=== PATIENT | female | born 1980 | race Caucasian/White ===

== ENCOUNTER 2016-09-06 17:52 | Emergency (ER) | payer OTHER ==
[~2016-09-06] VITALS: Ht 162.6 cm; Wt 110.1 kg
[~2016-09-06 17:52] MED LIST: AMB10 PO; ATOM40CA PO; BNT20 PO; BSP5 PO; LOVA20TA4 PO; PRAZ1CAP10 PO; PROP20TA67 PO; RMR15 PO; TOPI200T14 PO; TRAM-10 PO; TRAZ100T29 PO
[2016-09-06] MEDS ORDERED: SODIUM CHLORIDE 0.9% 1000ML 1,000 ML IV STA (18:07)
[2016-09-06] MEDS ORDERED: NICOTINE POLACRILEX 2 MG GUM MT STA (18:11)
[2016-09-06] MEDS ORDERED: NICOTINE 21 MG/24 HR TDSY TD STA (18:11)
[2016-09-06] MEDS ORDERED: TRVHP PO (18:22)
[2016-09-06] MEDS ORDERED: DOXE50CA3 PO (18:22)
[2016-09-06] MEDS ORDERED: HALO10TA17 PO (18:22)
[2016-09-06] MEDS ORDERED: AMPH20TA2 PO (18:22)
[2016-09-06] MEDS ORDERED: INDSR/60 PO (18:22)
[2016-09-06] MEDS ORDERED: VALA500T60 PO (18:22)
[2016-09-06] MEDS ORDERED: CLON1TAB3 PO (18:22)
[2016-09-06 18:27] LABS: URINE APPEARANCE CLEAR (CLEAR); URINE BILIRUBIN NEG (NEG); URINE COLOR YELLOW; URINE NITRITE NEG (NEG); URINE PH 6.5 (4.5-7.5); URINE SPECIFIC GRAVITY 1.009 (1.000-1.030); UROBILINOGEN NEG (NEG)
[2016-09-06 18:38] LABS: MANUAL MICROSCOPIC REQUIRED? YES; REVIEW REQ? NO
[2016-09-06 18:44] VITALS: TEMP 37.1; O2SAT 96; Ht 162.6 cm; Wt 110.1 kg
[2016-09-06 18:47] LABS: BASO % 0.5 %; BASO ABS # 0.05 K/uL (0-0.2); COMPLETE YES; HEMATOCRIT 41.8 % (37-47); IG% 0.3 %; LYMPH % 42.4 %; LYMPH ABS # 4.12 K/uL (1.2-3.4); MEAN CELL VOLUME 94.6 fL (80-100); MEAN CORPUSCULAR HEMOGLOBIN 31.7 pg (25-34); MEAN CORPUSCULAR HGB CONC 33.5 g/dl (32-36); MEAN PLATELET VOLUME 10.5 fL (7.4-10.4); MONO % 6.7 %; NEUT % 49.1 %; PLATELET COUNT 271 K/uL (130-400); RED BLOOD COUNT 4.42 M/uL (4.2-5.4); WHITE BLOOD COUNT 9.71 K/uL (4.8-10.8)
[2016-09-06 18:51] LABS: BENZODIAZEPINE, URINE NEG (NEG); COCAINE,URINE NEG (NEG); PHENCYCLIDINE, URINE NEG (NEG)
[2016-09-06 18:55] LABS: PARTIAL THROMBOPLASTIN RATIO 1.2; PROTHROMBIN TIME (PATIENT) 10.8 SECONDS (9.0-12.0)
[2016-09-06 19:01] LABS: URINE BACTERIA NEG (NEG); URINE RBC 0-4 /hpf (0-4)
[2016-09-06 19:04] LABS: BUN/CREATININE RATIO 10.6 (10-20); CALCIUM 9.4 mg/dl (8.5-10.1); CREATININE 0.99 mg/dl (0.60-1.20); POTASSIUM 3.1 mmol/L (3.5-5.1)
[2016-09-06 19:12] LABS: ACETAMINOPHEN < 2 ug/ml (10-30)
[2016-09-06 21:23] VITALS: BP 147/105; PULSE 75; O2SAT 98
--- NOTE | 2016-09-06 22:17 | EMERGENCY ROOM VISIT NOTE ---
History Report prepared by Wale: Jacquie Chahal Under the Supervision of: Dr. Abdoul Sherwood M.D. 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 The patient was brought to the ED by EMS. [facility] was on scene. She drank a chava jar of moonshine, ate marijuana, had 24 of triple C, cocaine , and an extra dose of Haldol. The history is limited due to the patient's intoxication. 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 Past Medical & Surgical Medical Problems: (1) Alcohol intoxication (2) Depression (3) IBS (irritable bowel syndrome) (4) Migraine (5) Seizure Family History No pertinent family history stated. Social History Marital Status: single Occupation Status: disabled Current/Historical Medications Scheduled Amphetamine-Dextroamphetamine 20MG (Adderall 20MG), 25 MG PO TID Buspirone Hcl (Buspar *), 10 MG PO DAILY Dicyclomine Hcl (Bentyl *), 20 MG PO TID Doxepin (Sinequan), 50 MG PO HS Emtricitabine/Temofovir (Truvada 200/300MG), 1 TAB PO DAILY Haloperidol (Haldol), 10 MG PO TID Prazosin Hcl (Prazosin), 1 MG PO BID Propranolol Hcl (Propranolol ER), 60 MG PO DAILY Tramadol (Ultram), 50-100 MG PO Q4HR Valacyclovir (Valtrex), 500 MG PO DAILY Zolpidem Tartrate (Ambien *), 10 MG PO HS Scheduled PRN Clonazepam (Klonopin), 1 MG PO TID PRN for prn Allergies Coded Allergies: Ethanol (Verified Allergy, Mild, 2/5/10) Thioridazine (Verified Allergy, Mild, 2/5/10) Atropine (Verified Adverse Reaction, Severe, SEIZURES, 2/5/10) Physical Exam Vital Signs Date Time Temp Pulse Resp B/P (MAP) Pulse Ox O2 Delivery O2 Flow Rate FiO2 09/06/16 21:23 75 20 147/105 98 Room Air 09/06/16 19:14 83 09/06/16 18:44 96 Room Air 09/06/16 18:44 96 Room Air 09/06/16 18:44 37.1 78 20 123/75 97 Room Air Physical Exam GENERAL: Patient is a healthy-appearing well-nourished red appears very happy HEAD: Normocephalic atraumatic EYES: Ocular movements intact pupils equal and react to light OROPHARYNX mucous membranes are moist no exudates present no erythema or edema present NECK: Supple no nuchal rigidity CHEST: Good equal expansion LUNGS: Clear and equal to auscultation CARDIAC: Normal S1 and S2 ABDOMEN: Soft nontender no guarding BACK: No CVA tenderness EXTREMITIES: No pain upon palpation normal muscle strength in all groups no clubbing cyanosis or edema NEURO: Patient is following commands and answering questions appropriately. Alert and oriented x3 Cranial Nerves 2-12 grossly intact Medical Decision & Procedures Laboratory Results 09/06/16 18:36 Red Blood Count 4.42, Mean Corpuscular Volume 94.6, Mean Corpuscular Hemoglobin 31.7, Mean Corpuscular Hemoglobin Concent 33.5, Mean Platelet Volume 10.5, Neutrophils (%) (Auto) 49.1, Lymphocytes (%) (Auto) 42.4, Monocytes (%) (Auto) 6.7, Eosinophils (%) (Auto) 1.0, Basophils (%) (Auto) 0.5, Neutrophils # (Auto) 4.76, Lymphocytes # (Auto) 4.12, Monocytes # (Auto) 0.65, Eosinophils # (Auto) 0.10, Basophils # (Auto) 0.05 09/06/16 18:36 Test 09/06/16 18:00 09/06/16 18:36 09/06/16 18:49 Urine Color YELLOW Urine Appearance CLEAR (CLEAR) Urine pH 6.5 (4.5-7.5) Urine Specific Noti 1.009 (1.000-1.030) Urine Protein NEG (NEG) Urine Glucose (UA) NEG (NEG) Urine Ketones NEG (NEG) Urine Occult Blood TRACE (NEG) Urine Nitrite NEG (NEG) Urine Bilirubin NEG (NEG) Urine Urobilinogen NEG (NEG) Urine Leukocyte Esterase SMALL (NEG) Urine WBC (Auto) /hpf (0-5) Urine RBC (Auto) /hpf (0-4) Urine Hyaline Casts (Auto) /lpf (0-5) Urine Epithelial Cells (Auto) /lpf (0-5) Urine Bacteria (Auto) (NEG) Urine RBC 0-4 /hpf (0-4) Urine WBC 1-5 /hpf (0-5) Urine Epithelial Cells 20-30 /lpf (0-5) Urine Bacteria NEG (NEG) Urine Opiates Screen NEG (NEG) Urine Methadone, Qualitative NEG (NEG) Urine Barbiturates NEG (NEG) Urine Phencyclidine (PCP) Level NEG (NEG) Ur Amphetamine/Methamphetamine NEG (NEG) MDMA (Ecstasy) Screen NEG (NEG) Urine Benzodiazepines Screen NEG (NEG) Urine Cocaine Metabolite NEG (NEG) Urine Marijuana (THC) NEG (NEG) White Blood Count 9.71 K/uL (4.8-10.8) Red Blood Count 4.42 M/uL (4.2-5.4) Hemoglobin 14.0 g/dL (12.0-16.0) Hematocrit 41.8 % (37-47) Mean Corpuscular Volume 94.6 fL (80-100) Mean Corpuscular Hemoglobin 31.7 pg (25-34) Mean Corpuscular Hemoglobin Concent 33.5 g/dl (32-36) Platelet Count 271 K/uL (130-400) Mean Platelet Volume 10.5 fL (7.4-10.4) Neutrophils (%) (Auto) 49.1 % Lymphocytes (%) (Auto) 42.4 % Monocytes (%) (Auto) 6.7 % Eosinophils (%) (Auto) 1.0 % Basophils (%) (Auto) 0.5 % Neutrophils # (Auto) 4.76 K/uL (1.4-6.5) Lymphocytes # (Auto) 4.12 K/uL (1.2-3.4) Monocytes # (Auto) 0.65 K/uL (0.11-0.59) Eosinophils # (Auto) 0.10 K/uL (0-0.5) Basophils # (Auto) 0.05 K/uL (0-0.2) RDW Standard Deviation 46.2 fL (36.4-46.3) RDW Coefficient of Variation 13.4 % (11.5-14.5) Immature Granulocyte % (Auto) 0.3 % Immature Granulocyte # (Auto) 0.03 K/uL (0.00-0.02) Prothrombin Time 10.8 SECONDS (9.0-12.0) Prothromb Time International Ratio 1.0 (0.9-1.1) Activated Partial Thromboplast Time 31.7 SECONDS (21.0-31.0) Partial Thromboplastin Ratio 1.2 Anion Gap 9.0 mmol/L (3-11) Est Creatinine Clear Calc Drug Dose 95.3 ml/min Estimated GFR () 85.0 Estimated GFR (Non- 73.3 BUN/Creatinine Ratio 10.6 (10-20) Calcium Level 9.4 mg/dl (8.5-10.1) Total Bilirubin 0.3 mg/dl (0.2-1) Direct Bilirubin 0.1 mg/dl (0-0.2) Aspartate Amino Transf (AST/SGOT) 16 U/L (15-37) Alanine Aminotransferase (ALT/SGPT) 25 U/L (12-78) Alkaline Phosphatase 102 U/L (45-117) Total Creatine Kinase 93 U/L (26-192) Total Protein 7.4 gm/dl (6.4-8.2) Albumin 3.9 gm/dl (3.4-5.0) Lipase 475 U/L (73-393) Salicylates Level 3.7 mg/dl (2.8-20) Acetaminophen Level < 2 ug/ml (10-30) Ethyl Alcohol mg/dL 67.0 mg/dl (0-3) Bedside Glucose 120 mg/dl (70-90) Labs reviewed by ED physician. Medications Administered Medications (Trade) Dose Ordered Sig/Rajesh Route Start Time Stop Time Status Last Admin Dose Admin Sodium Chloride 1,000 ml @ 999 mls/hr Q1H1M STAT IV 09/06/16 18:07 09/06/16 19:07 DC 09/06/16 18:52 999 MLS/HR Nicotine (Nicoderm Cq 21MG Patch) 1 patch NOW STAT TD 09/06/16 18:11 09/06/16 18:13 DC 09/06/16 19:30 1 PATCH ECG Indication: toxicologic Rate (beats per minute): 75 Rhythm: normal sinus Findings: no acute ischemic change, no ectopy, other (QT/QTc is 422/471) ED Course 1803: Past medical records reviewed. The patient was evaluated in room B7. A complete history and physical examination was performed. 1806: NSS 1000 ml @ 999 mls/hr IV. 1810: Nicotine Polacrilex 1 piece MT, Nicotine 1 patch TD. 1920: I reevaluated the patient. She appears to be back at baseline. 2045: The psychiatric patient case coordinator has seen the patient. She believes the patient can be discharged home. 2055: Upon reexamination the patient is resting comfortably. I discussed results and treatment plan with the patient. She verbalizes agreement and understanding. The patient is ready for discharge. Medical Decision Prior records/ancillary studies reviewed. Triage Nursing notes reviewed. Additional history obtained from nurses. The patient's history was concerning for altered mental status and a possible overdose. Differential diagnosis: Etiologies such as alcohol intoxication, toxicologic, infection, hypoglycemia, electrolyte abnormalities, cardiac sources, intracerebral event, neurologic, as well as others were entertained. Medication Reconciliation: I attest that I have personally reviewed the patient' s current medication list Blood Pressure Screening: Patient was found to have normal blood pressure on screening and does not require follow up. This is a 36-year-old female who presents emergency department with alcohol intoxication. Upon arrival to the emergency department the patient denies being suicidal or homicidal and appears alert and oriented. An IV was established and laboratory work was drawn. The patient's alcohol level was obtained and found to be below the legal limit. In addition the patient has normal CBC normal renal profile. I do believe that she is medically clear. She was discussed with the case management service who felt that the patient can be safely discharged. Patient was in agreement with treatment plan. Impression Primary Impression: Alcohol intoxication Scribe Attestation The scribe's documentation has been prepared under my direction and personally reviewed by me in its entirety. I confirm that the note above accurately reflects all work, treatment, procedures, and medical decision making performed by me. Departure Information Dispostion Home / Self-Care Referrals No Doctor, Assigned (PCP) Forms HOME CARE DOCUMENTATION FORM, IMPORTANT VISIT INFORMATION, WORK / SCHOOL INSTRUCTIONS Patient Instructions My [facility] Additional Instructions You have been examined and treated today on an emergency basis only. This is not a substitute for, or an effort to provide, complete comprehensive medical care. It is impossible to recognize and treat all injuries or illnesses in a single emergency department visit. It is therefore important that you follow up closely with your PCP. Call as soon as possible for an appointment. Thank you for your time and consideration. I look forward to speaking with you again soon. Please don't hesitate to call us if you have any questions. Problem Qualifiers Primary Impression: Alcohol intoxication Complication of substance-induced condition: uncomplicated Qualified Codes: F10.920 - Alcohol use, unspecified with intoxication, uncomplicated
[2016-09-07] MEDS ORDERED: DICY20TA10 PO (03:34)
[2016-09-07] MEDS ORDERED: SNQ/25 PO (10:40)
[2016-09-07] MEDS ORDERED: CGN5X PO (10:40)
[2016-09-07] MEDS ORDERED: HALO5TAB PO (10:41)
[2016-09-07] MEDS ORDERED: FLUO10CA48 PO (10:41)
[2016-09-07] MEDS ORDERED: LAMO200T38 PO (10:42)
[2016-09-07] MEDS ORDERED: PRIM50TA29 PO (10:43)
[2016-09-07] MEDS ORDERED: PROP20TA4 PO (10:45)
[2016-09-07] MEDS ORDERED: RANI150T3 PO (10:46)
[2016-09-10] MEDS ORDERED: PRAZ1CAP10 PO (23:08)
[2016-09-14] MEDS ORDERED: HLD5 PO (11:15)
[2016-09-14] MEDS ORDERED: HALO10TA17 PO (11:15)
[2016-09-18] MEDS ORDERED: MELATAB2 PO (11:12)
[2016-09-18] MEDS ORDERED: PRIM50TA29 PO (11:12)
[2016-09-18] MEDS ORDERED: PROP60CA5 PO (11:12)
[2016-09-18] MEDS ORDERED: LAMO200T38 PO (11:12)
== END 2016-09-06 21:23 | disposition home or self-care (01) ==
LOC: EDBD 17:52 → C.EDB 17:53 → C.EDA 21:23
DX: F10.129 Alcohol abuse with intoxication, unspecified (principal); Y90.3 Blood alcohol level of 60-79 mg/100 ml; G40.909 Epilepsy, unspecified, not intractable, without status epilepticus; F32.9 Major depressive disorder, single episode, unspecified; K58.9 Irritable bowel syndrome, unspecified; Z79.899 Other long term (current) drug therapy; Z88.8 Allergy status to other drugs, medicaments and biological substances

== ENCOUNTER 2016-09-07 03:06 | Inpatient (IN) | payer OTHER ==
[2016-09-07] VITALS (7 sets, daily range): BP systolic 104–138; BP diastolic 69–93; PULSE 57–67; TEMP 36.5–36.9; O2SAT 96; Ht 162.6 cm; Wt 111.8 kg
[~2016-09-07] VITALS: Ht 162.6 cm; Wt 111.8 kg
[~2016-09-07 03:06] MED LIST changes: +AMPH20TA2 PO; -ATOM40CA PO; +CLON1TAB3 PO; +DOXE50CA3 PO; +HALO10TA17 PO; +INDSR/60 PO; -LOVA20TA4 PO; -PROP20TA67 PO; -RMR15 PO; -TOPI200T14 PO; -TRAZ100T29 PO; +TRVHP PO; +VALA500T60 PO
--- NOTE | 2016-09-07 03:19 | EMERGENCY ROOM VISIT NOTE ---
History Report prepared by Wale: Edwin Milian Under the Supervision of: Dr. Douglas Coleman M.D. First contact with patient: 03:09 Chief Complaint: OVERDOSE (INTENTIONAL) Stated Complaint: OVERDOSE History of Present Illness The patient is a 36 year old female who presents to the Emergency Room with an intentional overdose that occurred today. She was seen in the ER yesterday for alcohol intoxication. She took 2 extra Haldol pills and 1 extra Propranolol pills today. She states that she was not trying to kill herself yet, but wants to. She came to [place] yesterday from [place]. She was seen in a psychologic facility a couple weeks ago. The patient is regularly changing her story. It is clearly different from her earlier visit and the police account. Source of History: patient Onset: today Position: other (global) Symptom Intensity: mild Quality: other (Overdose - intentional) Timing: constant Review of Systems See HPI for pertinent positives & negatives. A total of 10 systems reviewed and were otherwise negative. Past Medical & Surgical Medical Problems: (1) Alcohol intoxication (2) Depression (3) IBS (irritable bowel syndrome) (4) Migraine (5) Seizure Family History Unable to obtain. Social History Smoking Status: Current Every Day Smoker Marital Status: single Occupation Status: disabled Current/Historical Medications Scheduled Amphetamine-Dextroamphetamine 20MG (Adderall 20MG), 25 MG PO TID Doxepin (Sinequan), 50 MG PO HS Emtricitabine/Temofovir (Truvada 200/300MG), 1 TAB PO DAILY Haloperidol (Haldol), 10 MG PO TID Prazosin Hcl (Prazosin), 1 MG PO HS Propranolol Hcl (Propranolol ER), 60 MG PO DAILY Valacyclovir (Valtrex), 500 MG PO DAILY Scheduled PRN Clonazepam (Klonopin), 1 MG PO TID PRN for UNDECIDED Dicyclomine Hcl (Dicyclomine Hcl), 20 MG PO TID PRN for CRAMPING Allergies Coded Allergies: Ethanol (Verified Allergy, Mild, 2/5/10) Thioridazine (Verified Allergy, Mild, 2/5/10) Atropine (Verified Adverse Reaction, Severe, SEIZURES, 2/5/10) Physical Exam Vital Signs Date Time Temp Pulse Resp B/P (MAP) Pulse Ox O2 Delivery O2 Flow Rate FiO2 09/07/16 06:15 72 14 140/82 Room Air 09/07/16 05:26 79 16 136/74 09/07/16 04:26 78 16 127/63 96 Room Air 09/07/16 03:40 76 28 124/79 97 Room Air 09/07/16 03:10 36.9 75 16 123/70 99 Room Air Physical Exam GENERAL: Patient is well appearing and in no acute distress. Somewhat obstinate to questioning. HEENT: No acute trauma, normocephalic atraumatic, mucous membranes moist, no nasal congestion, no scleral icterus. NECK: No stridor, no adenopathy, no meningismus, trachea is midline. LUNGS: No dyspnea. Clear to auscultation and equal bilaterally. No wheeze, no rhonchi. HEART: Regular rate and rhythm. No murmurs, rubs, gallops appreciated. ABDOMEN: Soft, nontender, bowel sounds positive, no masses appreciated, no peritonitis. BACK: No midline tenderness, no CVA tenderness EXTREMITIES: Normal motion all extremities, no cyanosis, no edema. NEUROLOGIC: Alert and oriented, no acute motor or sensory deficits, no focal weakness, cranial nerves grossly intact. SKIN: No rash, no jaundice, no diaphoresis. PSYCH: States that she is suicidal but has not yet tried to kill herself. Admits to depression. Denies hallucinations or homicidal ideations. Medical Decision & Procedures Laboratory Results 09/07/16 03:25 Red Blood Count 4.31, Mean Corpuscular Volume 94.7, Mean Corpuscular Hemoglobin 32.3, Mean Corpuscular Hemoglobin Concent 34.1, Mean Platelet Volume 10.7, Neutrophils (%) (Auto) 47.6, Lymphocytes (%) (Auto) 40.4, Monocytes (%) (Auto) 8.8, Eosinophils (%) (Auto) 2.1, Basophils (%) (Auto) 0.8, Neutrophils # (Auto) 4.85, Lymphocytes # (Auto) 4.11, Monocytes # (Auto) 0.90, Eosinophils # (Auto) 0.21, Basophils # (Auto) 0.08 09/07/16 03:25 Test 09/07/16 03:19 09/07/16 03:25 Ethyl Alcohol mg/dL < 3.0 mg/dl (0-3) White Blood Count 10.18 K/uL (4.8-10.8) Red Blood Count 4.31 M/uL (4.2-5.4) Hemoglobin 13.9 g/dL (12.0-16.0) Hematocrit 40.8 % (37-47) Mean Corpuscular Volume 94.7 fL (80-100) Mean Corpuscular Hemoglobin 32.3 pg (25-34) Mean Corpuscular Hemoglobin Concent 34.1 g/dl (32-36) Platelet Count 289 K/uL (130-400) Mean Platelet Volume 10.7 fL (7.4-10.4) Neutrophils (%) (Auto) 47.6 % Lymphocytes (%) (Auto) 40.4 % Monocytes (%) (Auto) 8.8 % Eosinophils (%) (Auto) 2.1 % Basophils (%) (Auto) 0.8 % Neutrophils # (Auto) 4.85 K/uL (1.4-6.5) Lymphocytes # (Auto) 4.11 K/uL (1.2-3.4) Monocytes # (Auto) 0.90 K/uL (0.11-0.59) Eosinophils # (Auto) 0.21 K/uL (0-0.5) Basophils # (Auto) 0.08 K/uL (0-0.2) RDW Standard Deviation 46.4 fL (36.4-46.3) RDW Coefficient of Variation 13.3 % (11.5-14.5) Immature Granulocyte % (Auto) 0.3 % Immature Granulocyte # (Auto) 0.03 K/uL (0.00-0.02) Anion Gap 4.0 mmol/L (3-11) Est Creatinine Clear Calc Drug Dose 99.2 ml/min Estimated GFR () 88.2 Estimated GFR (Non- 76.1 BUN/Creatinine Ratio 9.7 (10-20) Calcium Level 8.5 mg/dl (8.5-10.1) Total Bilirubin 0.3 mg/dl (0.2-1) Aspartate Amino Transf (AST/SGOT) 16 U/L (15-37) Alanine Aminotransferase (ALT/SGPT) 26 U/L (12-78) Alkaline Phosphatase 104 U/L (45-117) Total Protein 7.1 gm/dl (6.4-8.2) Albumin 3.8 gm/dl (3.4-5.0) Globulin 3.3 gm/dl (2.5-4.0) Albumin/Globulin Ratio 1.2 (0.9-2) Thyroid Stimulating Hormone (TSH) 1.580 uIu/ml (0.300-4.500) Salicylates Level 3.5 mg/dl (2.8-20) Acetaminophen Level < 2 ug/ml (10-30) Laboratory results as reviewed by me. ECG Indication: toxicologic Rate (beats per minute): 75 Rhythm: normal sinus Findings: no acute ischemic change, no ectopy, other (QTC of 477) ED Course 0309: The patient was evaluated in room B9. A complete history and physical exam was performed. 0415: The patient was accepted into [address] [place] [address] for further management and care. They will be coming down to evaluate the patient. Medical Decision Differential: Mood Disorder, Overdose, Infectious, Electrolyte Abnormality, Cardiac, Hepatic, Endocrine, Toxicologic, Neurologic, amongst other pathologies entertained. 36 yr old female with multiple varying stories though repeatedly stating she plans on killing herself by overdosing arrives for second time this evening after just getting [facility] bus from [facility]. She notes recent admission to mental health facility but is pretty vague on actual information. She is in no acute distress and is clearly a bit on tired side though not intoxicated. Story changes on what she overdosed on but states only 1 or 2 pills taken. Medically clear with normal EKG and unremarkable labs. I do not feel she has significant ingestion. She has made clear she has been unable to care for herself, and I fear she likely is suicide risk given her history of ICU stay here when in town 10 yrs ago after overdose. [facility] down to evaluate and bring in to their facility on voluntary basis. Impression Primary Impression: Acute paranoia Additional Impressions: Suicidal ideation Noncompliance with medication regimen Delusional disorder Scribe Attestation The scribe's documentation has been prepared under my direction and personally reviewed by me in its entirety. I confirm that the note above accurately reflects all work, treatment, procedures, and medical decision making performed by me. Departure Information Dispostion Mental Health Acute Care Referrals No Doctor, Assigned (PCP) Patient Instructions My [facility] Problem Qualifiers
[2016-09-07 03:32] LABS: BASO % 0.8 %; BASO ABS # 0.08 K/uL (0-0.2); COMPLETE YES; EOS % 2.1 %; HEMATOCRIT 40.8 % (37-47); IG% 0.3 %; LYMPH % 40.4 %; LYMPH ABS # 4.11 K/uL (1.2-3.4); MEAN CELL VOLUME 94.7 fL (80-100); MEAN CORPUSCULAR HEMOGLOBIN 32.3 pg (25-34); MEAN CORPUSCULAR HGB CONC 34.1 g/dl (32-36); MEAN PLATELET VOLUME 10.7 fL (7.4-10.4); MONO % 8.8 %; NEUT % 47.6 %; PLATELET COUNT 289 K/uL (130-400); RED BLOOD COUNT 4.31 M/uL (4.2-5.4); WHITE BLOOD COUNT 10.18 K/uL (4.8-10.8)
[2016-09-07] MEDS ORDERED: DICY20TA10 PO (03:34)
[2016-09-07 04:05] LABS: ACETAMINOPHEN < 2 ug/ml (10-30); BUN/CREATININE RATIO 9.7 (10-20); CALCIUM 8.5 mg/dl (8.5-10.1); CREATININE 0.96 mg/dl (0.60-1.20); POTASSIUM 3.6 mmol/L (3.5-5.1)
[2016-09-07 04:12] LABS: ALB/GLOB RATIO 1.2 (0.9-2); THYROID STIMULATING HORMONE 1.58 uIu/ml (0.300-4.500)
[2016-09-07] MEDS ORDERED: NURSING VERBAL MED ORDER ONE (06:00)
[2016-09-07] MEDS ORDERED: SODIUM CHLORIDE 0.65% NA SOLN 45 ML (OCEAN) PRN (07:15)
[2016-09-07] MEDS ORDERED: MAGNESIUM HYDROXIDE SUSP 30 ML UDC PO PRN (07:15)
[2016-09-07] MEDS ORDERED: BISMUTH SUBSALICYLATE PER ML OMNICELL CHARGE PO PRN (07:15)
[2016-09-07] MEDS ORDERED: hydrOXYzine HCL 25 MG TAB PO PRN (07:15)
[2016-09-07] MEDS ORDERED: ALUMINUM/MAGNESIUM SUSP 30 ML UDC PO PRN (07:15)
[2016-09-07] MEDS ORDERED: PROPRANOLOL HCL 60 MG LA CAP PO SCH (09:00)
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
[2016-09-07] MEDS ORDERED: CGN5X PO (10:40)
[2016-09-07] MEDS ORDERED: SNQ/25 PO (10:40)
[2016-09-07] MEDS ORDERED: HALO5TAB PO (10:41)
[2016-09-07] MEDS ORDERED: FLUO10CA48 PO (10:41)
[2016-09-07] MEDS ORDERED: LAMO200T38 PO (10:42)
[2016-09-07] MEDS ORDERED: PRIM50TA29 PO (10:43)
[2016-09-07] MEDS ORDERED: PROP20TA4 PO (10:45)
[2016-09-07] MEDS ORDERED: RANI150T3 PO (10:46)
[2016-09-07] MEDS ORDERED: LORAZEPAM 1 MG TAB PO PRN (17:15)
[2016-09-07] MEDS: BENZTROPINE MESYLATE 0.5 MG TAB PO SCH (21:15)
[2016-09-07] MEDS: HALOPERIDOL 5 MG TAB PO SCH (21:16)
[2016-09-07] MEDS: PRIMIDONE 50 MG TAB PO SCH (21:16)
[2016-09-07] MEDS: PRAZOSIN HCL 1 MG CAP PO SCH (21:17)
[2016-09-07] MEDS ORDERED: PRAZOSIN HCL 1 MG CAP PO SCH (22:00)
[2016-09-08 06:52] VITALS: BP_SYST 127; BP_SYST 136; BP_DIAS 73; BP_DIAS 83; PULSE 53; PULSE 56; TEMP 36.6
[2016-09-08] MEDS: EMTRICITABINE/TENOFOVIR TAB PO SCH (09:00)
[2016-09-08] MEDS ORDERED: EMTRICITABINE/TENOFOVIR TAB PO SCH (09:00)
[2016-09-08] MEDS: BENZTROPINE MESYLATE 0.5 MG TAB PO SCH ×2 (09:35→21:14)
[2016-09-08] MEDS: PRIMIDONE 50 MG TAB PO SCH ×2 (09:36→21:14)
[2016-09-08] MEDS: HALOPERIDOL 5 MG TAB PO SCH ×3 (09:36→21:14)
[2016-09-08] MEDS: PRAZOSIN HCL 1 MG CAP PO SCH ×2 (09:38→21:15)
[2016-09-08] MEDS: ACETAMINOPHEN 325 MG TAB PO PRN (10:03)
[2016-09-08 10:35] LABS: BUN/CREATININE RATIO 12.8 (10-20); CALCIUM 8.6 mg/dl (8.5-10.1); CREATININE 0.94 mg/dl (0.60-1.20); POTASSIUM 3.7 mmol/L (3.5-5.1)
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
[2016-09-08] MEDS ORDERED: PROPRANOLOL HCL 60 MG LA CAP PO ONE (10:59)
[2016-09-08 11:35] VITALS: BP 125/85; PULSE 82
[2016-09-08 11:45] VITALS: TEMP 36.5
[2016-09-08] MEDS: hydrOXYzine HCL 25 MG TAB PO PRN (15:24)
[2016-09-08] MEDS ORDERED: NURSING VERBAL MED ORDER ONE (18:45)
[2016-09-08] MEDS ORDERED: NICOTINE POLACRILEX 2 MG GUM MT PRN (19:00)
[2016-09-08] MEDS: COCONUT OIL 1000 MG PO SCH (21:14)
[2016-09-08] MEDS ORDERED: MELATONIN 5 MG TAB PO SCH (22:00)
[2016-09-09 07:01] VITALS: BP_SYST 108; BP_SYST 127; BP_DIAS 71; BP_DIAS 83; PULSE 56; PULSE 64; TEMP 36.8
[2016-09-09] MEDS ORDERED: PROPRANOLOL HCL 60 MG LA CAP PO SCH (09:00)
[2016-09-09] MEDS: HALOPERIDOL 5 MG TAB PO SCH (09:22)
[2016-09-09] MEDS: BENZTROPINE MESYLATE 0.5 MG TAB PO SCH (09:22)
[2016-09-09] MEDS: COCONUT OIL 1000 MG PO SCH (09:24)
[2016-09-09] MEDS: PRIMIDONE 50 MG TAB PO SCH (09:24)
[2016-09-09] MEDS: PRAZOSIN HCL 1 MG CAP PO SCH (09:25)
[2016-09-09] MEDS: EMTRICITABINE/TENOFOVIR TAB PO SCH (09:26)
[2016-09-09] MEDS: ACETAMINOPHEN 325 MG TAB PO PRN (09:50)
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
[2016-09-09] MEDS: hydrOXYzine HCL 25 MG TAB PO PRN (10:56)
[2016-09-09] MEDS ORDERED: TRV PO (11:52)
[2016-09-09] MEDS ORDERED: PRZ1 PO (11:52)
[2016-09-09] MEDS ORDERED: ATR25 PO (11:52)
[2016-09-09] MEDS ORDERED: HLD5 PO (11:52)
[2016-09-09] MEDS ORDERED: VLT500 PO (11:52)
[2016-09-09] MEDS ORDERED: LMC100 PO (11:52)
[2016-09-09] MEDS ORDERED: MYS50 PO (11:52)
[2016-09-09] MEDS ORDERED: Melatonin PO (11:52)
[2016-09-09] MEDS ORDERED: CGN5 PO (11:52)
[2016-09-09] MEDS ORDERED: INDSR60 PO (11:52)
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
[2016-09-10] MEDS ORDERED: HALO5TAB PO (23:08)
[2016-09-10] MEDS ORDERED: CGN1 PO (23:08)
[2016-09-10] MEDS ORDERED: PRIM50TA29 PO (23:08)
[2016-09-10] MEDS ORDERED: PROP20TA67 PO (23:08)
[2016-09-10] MEDS ORDERED: PROP1TAB PO (23:08)
[2016-09-10] MEDS ORDERED: PRAZ1CAP10 PO (23:08)
[2016-09-10] MEDS ORDERED: MELATAB2 PO (23:08)
[2016-09-10] MEDS ORDERED: LAMO100T16 PO (23:08)
[2016-09-14] MEDS ORDERED: HALO10TA17 PO (11:15)
[2016-09-14] MEDS ORDERED: HLD5 PO (11:15)
[2016-09-18] MEDS ORDERED: PRIM50TA29 PO (11:12)
[2016-09-18] MEDS ORDERED: PROP60CA5 PO (11:12)
[2016-09-18] MEDS ORDERED: MELATAB2 PO (11:12)
[2016-09-18] MEDS ORDERED: LAMO200T38 PO (11:12)
== END 2016-09-09 12:35 | disposition home or self-care (01) | DRG 880 ==
LOC: EDBD 03:06 → C.EDB 03:08 → C.MHU 06:00
PROVIDERS: ADMIT Student in an Organized Health Care Education/Training Program; ATTEND Student in an Organized Health Care Education/Training Program
DX: R45.851 Suicidal ideations (principal); F60.3 Borderline personality disorder; Z91.14 Patient's other noncompliance with medication regimen; F25.0 Schizoaffective disorder, bipolar type; F43.10 Post-traumatic stress disorder, unspecified; G40.909 Epilepsy, unspecified, not intractable, without status epilepticus; F32.9 Major depressive disorder, single episode, unspecified; F17.200 Nicotine dependence, unspecified, uncomplicated; T44.6X2A Poisoning by alpha-adrenoreceptor antagonists, intentional self-harm, initial encounter; F10.129 Alcohol abuse with intoxication, unspecified; Y90.3 Blood alcohol level of 60-79 mg/100 ml; K58.9 Irritable bowel syndrome, unspecified; Z79.899 Other long term (current) drug therapy; Z88.8 Allergy status to other drugs, medicaments and biological substances

== ENCOUNTER 2016-09-10 17:33 | Inpatient (IN) | payer OTHER ==
[~2016-09-10] VITALS: Ht 162.6 cm; Wt 111.8 kg
[~2016-09-10 17:33] MED LIST changes: -AMB10 PO; -AMPH20TA2 PO; +ATR25 PO; -BNT20 PO; -BSP5 PO; +CGN5 PO; -CLON1TAB3 PO; -DOXE50CA3 PO; -HALO10TA17 PO; +HLD5 PO; -INDSR/60 PO; +INDSR60 PO; +LMC100 PO; +MYS50 PO; +Melatonin PO; +PROP20TA4 PO; +PRZ1 PO; -TRAM-10 PO; +TRV PO; -TRVHP PO; -VALA500T60 PO; +VLT500 PO
[2016-09-10 18:36] LABS: BASO % 0.5 %; BASO ABS # 0.04 K/uL (0-0.2); COMPLETE YES; EOS % 0.9 %; HEMATOCRIT 38.3 % (37-47); IG% 0.3 %; LYMPH % 43.6 %; LYMPH ABS # 3.81 K/uL (1.2-3.4); MEAN CELL VOLUME 93.6 fL (80-100); MEAN CORPUSCULAR HGB CONC 34.2 g/dl (32-36); MEAN PLATELET VOLUME 10.7 fL (7.4-10.4); MONO % 6.1 %; NEUT % 48.6 %; PLATELET COUNT 231 K/uL (130-400); RED BLOOD COUNT 4.09 M/uL (4.2-5.4); WHITE BLOOD COUNT 8.73 K/uL (4.8-10.8)
--- NOTE | 2016-09-10 18:52 | EMERGENCY ROOM VISIT NOTE ---
History Report prepared by Wale: Bart Eddy Under the Supervision of: Dr. Douglas Coleman M.D. First contact with patient: 18:10 Chief Complaint: MENTAL HEALTH EVALUATION Stated Complaint: MENTAL HEALTH EVAL History of Present Illness The patient is a 36 year old female who presents to the Emergency Room with intermittent suicidal ideations a few days ago. The patient states that she told Cher that she took her Remeron, and they thought she was going to overdose. She reports that she is planning on killing herself by taking an overdose of pills. The patient notes that she is not lying, even after talking to the psychiatrist yesterday. She states that she has a hotel and [facility] to go to. The dependency case manager states the patient talked to the psychiatrist yesterday and said "I will say whatever I need to be admitted because I have no where to go". She reports that the patient has not picked up her medication from [facility] because she is afraid that she will overdose and kill herself. The case manger notes the patient states to have not taken anything. The patient's records show that she was discharged yesterday after a 302 warrant brought her into the ED. Source of History: patient, other (dependency case manager) Onset: few days ago Position: other (brain) Quality: other (scuidal ideations) Timing: intermittent Review of Systems See HPI for pertinent positives & negatives. A total of 10 systems reviewed and were otherwise negative. Past Medical & Surgical Medical Problems: (1) Alcohol intoxication (2) BORDERLINE PERSONALITY DISORDER (3) Depression (4) IBS (irritable bowel syndrome) (5) Migraine (6) Seizure (7) Suicidal ideation Family History Patient reports no known family medical history. Social History Smoking Status: Current Every Day Smoker Marital Status: single Occupation Status: disabled Current/Historical Medications Scheduled Benztropine Mesylate (Cogentin), 0.5 MG PO BID Emtricitabine/Temofovir (Truvada 200/300MG), 1 TAB PO DAILY Haloperidol (Haldol), 1 TAB PO TID Hydroxyzine HCl (Hydroxyzine HCl), 25 MG PO Q4H Lamotrigine (Lamictal), 100 MG PO BID Melatonin (Melatonin Maximum Strengt), 1 TAB PO HS Prazosin Hcl (Prazosin), 1 MG PO BID Prazosin Hcl (Prazosin), 1 MG PO HS Primidone (Mysoline), 50 MG PO BID Propranolol (Inderal), 60 MG PO DAILY Propranolol (Inderal), 20 MG PO TID Valacyclovir (Valtrex), 1 TAB PO DAILY Allergies Coded Allergies: Ethanol (Verified Allergy, Mild, 09/10/16) Thioridazine (Verified Allergy, Mild, 09/10/16) Atropine (Verified Adverse Reaction, Severe, SEIZURES, 09/10/16) Physical Exam Vital Signs Date Time Temp Pulse Resp B/P (MAP) Pulse Ox O2 Delivery O2 Flow Rate FiO2 09/10/16 23:14 46 09/10/16 22:53 51 16 114/59 99 Room Air 09/10/16 21:41 50 16 113/58 93 Room Air 09/10/16 19:42 50 16 95/45 95 Room Air 09/10/16 19:24 55 09/10/16 19:01 94 Room Air 09/10/16 17:45 36.4 60 18 93/52 95 Room Air Physical Exam GENERAL: Patient is somnolent but awakes and answers questions. Obstinate and angry with questioning. HEENT: No acute trauma, normocephalic atraumatic, mucous membranes moist, no nasal congestion, no scleral icterus. NECK: No stridor, no adenopathy, no meningismus, trachea is midline. LUNGS: No dyspnea. Clear to auscultation and equal bilaterally. No wheeze, no rhonchi. HEART: Regular rate and rhythm. No murmurs, rubs, gallops appreciated. ABDOMEN: Soft, nontender, bowel sounds positive, no masses appreciated, no peritonitis. BACK: No midline tenderness, no CVA tenderness EXTREMITIES: Normal motion all extremities, no cyanosis, no edema. NEUROLOGIC: Alert and oriented, no acute motor or sensory deficits, no focal weakness, cranial nerves grossly intact. SKIN: No rash, no jaundice, no diaphoresis. PSYCH: States she will overdose on pills and have to go to the ICU if I do not admit her to the hospital Medical Decision & Procedures Laboratory Results 09/10/16 18:20 Red Blood Count 4.09, Mean Corpuscular Volume 93.6, Mean Corpuscular Hemoglobin 32.0, Mean Corpuscular Hemoglobin Concent 34.2, Mean Platelet Volume 10.7, Neutrophils (%) (Auto) 48.6, Lymphocytes (%) (Auto) 43.6, Monocytes (%) (Auto) 6.1, Eosinophils (%) (Auto) 0.9, Basophils (%) (Auto) 0.5, Neutrophils # (Auto) 4.24, Lymphocytes # (Auto) 3.81, Monocytes # (Auto) 0.53, Eosinophils # (Auto) 0.08, Basophils # (Auto) 0.04 09/10/16 18:20 Test 09/10/16 18:20 09/10/16 19:30 White Blood Count 8.73 K/uL (4.8-10.8) Red Blood Count 4.09 M/uL (4.2-5.4) Hemoglobin 13.1 g/dL (12.0-16.0) Hematocrit 38.3 % (37-47) Mean Corpuscular Volume 93.6 fL (80-100) Mean Corpuscular Hemoglobin 32.0 pg (25-34) Mean Corpuscular Hemoglobin Concent 34.2 g/dl (32-36) Platelet Count 231 K/uL (130-400) Mean Platelet Volume 10.7 fL (7.4-10.4) Neutrophils (%) (Auto) 48.6 % Lymphocytes (%) (Auto) 43.6 % Monocytes (%) (Auto) 6.1 % Eosinophils (%) (Auto) 0.9 % Basophils (%) (Auto) 0.5 % Neutrophils # (Auto) 4.24 K/uL (1.4-6.5) Lymphocytes # (Auto) 3.81 K/uL (1.2-3.4) Monocytes # (Auto) 0.53 K/uL (0.11-0.59) Eosinophils # (Auto) 0.08 K/uL (0-0.5) Basophils # (Auto) 0.04 K/uL (0-0.2) RDW Standard Deviation 44.5 fL (36.4-46.3) RDW Coefficient of Variation 12.9 % (11.5-14.5) Immature Granulocyte % (Auto) 0.3 % Immature Granulocyte # (Auto) 0.03 K/uL (0.00-0.02) Anion Gap 5.0 mmol/L (3-11) Est Creatinine Clear Calc Drug Dose 96.7 ml/min Estimated GFR () 94.1 Estimated GFR (Non- 81.2 BUN/Creatinine Ratio 16.4 (10-20) Calcium Level 8.6 mg/dl (8.5-10.1) Total Bilirubin 0.2 mg/dl (0.2-1) Aspartate Amino Transf (AST/SGOT) 14 U/L (15-37) Alanine Aminotransferase (ALT/SGPT) 23 U/L (12-78) Alkaline Phosphatase 97 U/L (45-117) Total Protein 6.2 gm/dl (6.4-8.2) Albumin 3.6 gm/dl (3.4-5.0) Globulin 2.6 gm/dl (2.5-4.0) Albumin/Globulin Ratio 1.4 (0.9-2) Thyroid Stimulating Hormone (TSH) 1.640 uIu/ml (0.300-4.500) Salicylates Level 3.4 mg/dl (2.8-20) Acetaminophen Level 6 ug/ml (10-30) Ethyl Alcohol mg/dL < 3.0 mg/dl (0-3) Urine Color YELLOW Urine Appearance CLEAR (CLEAR) Urine pH 6.5 (4.5-7.5) Urine Specific [place] 1.008 (1.000-1.030) Urine Protein NEG (NEG) Urine Glucose (UA) NEG (NEG) Urine Ketones NEG (NEG) Urine Occult Blood 2+ (NEG) Urine Nitrite NEG (NEG) Urine Bilirubin NEG (NEG) Urine Urobilinogen NEG (NEG) Urine Leukocyte Esterase MODERATE (NEG) Urine WBC (Auto) 1-5 /hpf (0-5) Urine RBC (Auto) 0-4 /hpf (0-4) Urine Hyaline Casts (Auto) 0 /lpf (0-5) Urine Epithelial Cells (Auto) 20-30 /lpf (0-5) Urine Bacteria (Auto) NEG (NEG) Urine Opiates Screen NEG (NEG) Urine Methadone, Qualitative NEG (NEG) Urine Barbiturates POS (NEG) Urine Phencyclidine (PCP) Level NEG (NEG) Ur Amphetamine/Methamphetamine NEG (NEG) MDMA (Ecstasy) Screen NEG (NEG) Urine Benzodiazepines Screen NEG (NEG) Urine Cocaine Metabolite NEG (NEG) Urine Marijuana (THC) POS (NEG) Laboratory results as reviewed by me. ED Course 181: The patient was evaluated in room A07. A complete history and physical exam was performed. 2018: The patient is attempting to be placed at [facility]. 2331: The patient was accepted to [facility] for further evaluation. Medical Decision Differential: Mood Disorder, Overdose, Infectious, Electrolyte Abnormality, Cardiac, Hepatic, Endocrine, Toxicologic, Neurologic, amongst other pathologies entertained. Medication Reconciliation: I attest that I have personally reviewed the patient 's current medication list. 36 yr old non-compliant patient known to me from a few days ago when admitted for mental health evaluation. Recently moved from [place] and has no where to stay. This is her third mental health evaluation. She already was admitted and admits at that time she just wanted a bed, but now she feels she is truly suicidal and that she will kill herself if she gets discharged. In fact she states she will overdose on her medications and "...end up in ICU like last time." She is non-cooperative and really only willing to talk about being suicidal. She is not interested in other discussions. She clearly is able to be awake and answer questions, though also I believe chooses not too. She did take Remeron before coming in but I do not feel that she needs medical admission for further evaluation. Accepted back to [address] [place] [address] where she was discharged from yesterday. Impression Primary Impression: Suicidal ideation Additional Impression: Non compliance with medical treatment Scribe Attestation The scribe's documentation has been prepared under my direction and personally reviewed by me in its entirety. I confirm that the note above accurately reflects all work, treatment, procedures, and medical decision making performed by me. Departure Information Dispostion Transfer Acute Care Facility Referrals No Doctor, Assigned (PCP) Forms HOME CARE DOCUMENTATION FORM, IMPORTANT VISIT INFORMATION Patient Instructions My [facility] Problem Qualifiers
[2016-09-10 18:56] LABS: BUN/CREATININE RATIO 16.4 (10-20); CALCIUM 8.6 mg/dl (8.5-10.1); CREATININE 0.91 mg/dl (0.60-1.20); POTASSIUM 3.5 mmol/L (3.5-5.1)
[2016-09-10 19:01] VITALS: O2SAT 94
[2016-09-10 19:07] LABS: ALB/GLOB RATIO 1.4 (0.9-2); THYROID STIMULATING HORMONE 1.64 uIu/ml (0.300-4.500)
[2016-09-10 19:47] LABS: URINE APPEARANCE CLEAR (CLEAR); URINE BILIRUBIN NEG (NEG); URINE COLOR YELLOW; URINE EPITHELIAL CELL AUTO 20-30 /lpf (0-5); URINE NITRITE NEG (NEG); URINE PH 6.5 (4.5-7.5); URINE SPECIFIC GRAVITY 1.008 (1.000-1.030); UROBILINOGEN NEG (NEG); ZZUR CULT IF INDIC CLEAN CATCH NO
[2016-09-10 19:59] LABS: MANUAL MICROSCOPIC REQUIRED? NO; REVIEW REQ? NO
[2016-09-10 20:08] LABS: BENZODIAZEPINE, URINE NEG (NEG); COCAINE,URINE NEG (NEG); PHENCYCLIDINE, URINE NEG (NEG)
[2016-09-10 22:53] VITALS: O2SAT 99
[2016-09-10] MEDS ORDERED: MELATAB2 PO (23:08)
[2016-09-10] MEDS ORDERED: PROP1TAB PO (23:08)
[2016-09-10] MEDS ORDERED: PRAZ1CAP10 PO ×2 (23:08)
[2016-09-10] MEDS ORDERED: TRVHP PO (23:08)
[2016-09-10] MEDS ORDERED: CGN1 PO (23:08)
[2016-09-10] MEDS ORDERED: LAMO100T16 PO (23:08)
[2016-09-10] MEDS ORDERED: PRIM50TA29 PO (23:08)
[2016-09-10] MEDS ORDERED: VALA500T60 PO (23:08)
[2016-09-10] MEDS ORDERED: ATR25 PO (23:08)
[2016-09-10] MEDS ORDERED: PROP20TA67 PO (23:08)
[2016-09-10] MEDS ORDERED: HALO5TAB PO (23:08)
[2016-09-10] MEDS ORDERED: MAGNESIUM HYDROXIDE SUSP 30 ML UDC PO PRN (23:30)
[2016-09-10] MEDS ORDERED: ALUMINUM/MAGNESIUM SUSP 30 ML UDC PO PRN (23:30)
[2016-09-10] MEDS ORDERED: SODIUM CHLORIDE 0.65% NA SOLN 45 ML (OCEAN) PRN (23:30)
[2016-09-10] MEDS ORDERED: BISMUTH SUBSALICYLATE PER ML OMNICELL CHARGE PO PRN (23:30)
[2016-09-10 23:54] VITALS: Ht 162.6 cm; Wt 111.8 kg
[2016-09-11] MEDS ORDERED: PROPRANOLOL HCL 20 MG TAB PO SCH (09:00)
[2016-09-11] MEDS ORDERED: PRIMIDONE 50 MG TAB PO SCH (09:00)
[2016-09-11] MEDS: BENZTROPINE MESYLATE 1 MG TAB PO SCH ×2 (10:27→20:51)
[2016-09-11] MEDS: HALOPERIDOL 5 MG TAB PO SCH ×3 (10:28→20:52)
[2016-09-11] MEDS: EMTRICITABINE/TENOFOVIR TAB PO SCH (10:29)
[2016-09-11] MEDS: PRAZOSIN HCL 1 MG CAP PO SCH ×2 (10:30→20:54)
[2016-09-11] MEDS: hydrOXYzine HCL 25 MG TAB PO PRN ×3 (10:53→20:56)
[2016-09-11] MEDS ORDERED: MELATAB2 PO (11:12)
[2016-09-11] MEDS ORDERED: LAMO200T38 PO (11:12)
[2016-09-11] MEDS ORDERED: PROP60CA5 PO (11:12)
[2016-09-11] MEDS ORDERED: PRIM50TA29 PO (11:12)
[2016-09-11] MEDS: PROPRANOLOL HCL 60 MG LA CAP PO SCH (11:21)
[2016-09-11] MEDS: IBUPROFEN 600 MG TAB PO PRN ×2 (11:26→16:40)
[2016-09-11 11:28] VITALS: BP 103/67; PULSE 61
[2016-09-11] MEDS ORDERED: PRIMIDONE 50 MG TAB PO ONE (11:30)
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
[2016-09-11] MEDS ORDERED: BISACODYL 5 MG TABEC PO ONE (18:00)
[2016-09-11] MEDS: MELATONIN 5 MG PO SCH (20:53)
[2016-09-11] MEDS: PRIMIDONE 50 MG TAB PO SCH (20:53)
[2016-09-11] MEDS: ACETAMINOPHEN 325 MG TAB PO PRN (20:56)
[2016-09-11] MEDS ORDERED: NON-FORMULARY MEDICATION (Melatonin (Melatonin Maximum Strengt) 1 TAB) PO SCH (21:00)
[2016-09-11] MEDS ORDERED: PRAZOSIN HCL 1 MG CAP PO SCH (21:00)
[2016-09-12] MEDS: BENZTROPINE MESYLATE 1 MG TAB PO SCH ×2 (11:55→21:04)
[2016-09-12] MEDS: PROPRANOLOL HCL 60 MG LA CAP PO SCH (11:55)
[2016-09-12] MEDS: HALOPERIDOL 5 MG TAB PO SCH ×2 (11:55→21:06)
[2016-09-12] MEDS: EMTRICITABINE/TENOFOVIR TAB PO SCH (11:56)
[2016-09-12] MEDS: PRIMIDONE 50 MG TAB PO SCH ×2 (11:56→21:08)
[2016-09-12] MEDS: PRAZOSIN HCL 1 MG CAP PO SCH ×2 (11:56→21:08)
[2016-09-12 12:48] VITALS: BP_SYST 137; BP_SYST 148; BP_DIAS 98; PULSE 68; PULSE 87
[2016-09-12] MEDS: BISACODYL 5 MG TABEC PO PRN ×2 (13:28→21:09)
--- NOTE | 2016-09-12 13:28 | Psychiatric Progress Notes ---
Progress Note Date of Service Sep 12, 2016. Interval History 36 yo female, with past diagnosis of schizoaffective disorder, admitted voluntarily with reports of SI. Just discharged from out unit 1 day earlier after admitting she just said she was suicidal to get a place to stay. Chief Complaint "I want to receive treatment.". Subjective Patient was seen & assessed interval progress reviewed with Treatment Team. The patient's mood has been labile over the last 24 hours since admission, at one point saying she wants treatment in the next refusing to consider rehabilitation. Today, she says that her mood is great and his back on the bandwagon, wanting to go to rehabilitation for her substance abuse. She comes to the office with a hand drawn geometric pattern that she is talking about extensively and rapidly. She says that her mood is "very positive" and says that she has "a lot" of energy. She says that she gets anxious in closed in spaces and thinks that she needs to take when necessary Vistaril. She admits that she was clearly manic several weeks ago saying that she was grandiose, thinking that she was God but that resolved after she got restarted on her Haldol. She denies suicidal or homicidal thinking. She denies auditory or visual hallucinations. She has had trouble containing inappropriate conversation around the unit and is talking about sexual acts she has performed an about the good aspects of drug abuse. She has required frequent redirection away from these topics. She denies side effects to medications and we discussed increasing Haldol to target the affect of components of her illness, to which she agrees. Review of Systems Constitutional: No fever, No chills, No sweats, No weight loss, No weakness, No fatigue, No problem reported ENT: No hearing loss, No unusual epistaxis, No nasal symptoms, No sore throat, No tinnitus, No dental problems, No trouble swallowing, No problem reported Respiratory: No cough, No sputum, No wheezing, No shortness of breath, No dyspnea on exertion, No dyspnea at rest, No hemoptysis, No problem reported Cardiovascular: No chest pain, No orthopnea, No PND, No edema, No claudication , No palpitations, No problem reported Abdomen: No pain, No nausea, No vomiting, No diarrhea, No constipation, No GI bleeding, No problem reported Musculoskeletal: No joint pain, No muscle pain, No swelling, No calf pain, No problem reported Neurologic: No memory loss, No paralysis, No weakness, No numbness/tingling, No vertigo, No balance problems, No problem reported Psychiatric: + problem reported (elevated energy) Integumentary: No rash, No itch, No new/changing skin lesions, No color change , No bleeding, No problem reported Sleep Information Total Hours of Sleep: 7.50 Meal Information Percent of Breakfast Consumed: 0 Percent of Lunch Consumed: 75 Percent of Dinner Consumed: 100 Mental Status Exam During interview pt is: alert and oriented, cooperative Appearance: appropriately dressed, appropriately groomed Eye contact is: good, poor Motor behavior is: steady gait & station, other (somnolent and poorly motivated to awaken for the interview) Speech: other (rapid) Affect: flat, angry (by the end of the interview) Mood is: irritable Thought process: tangential Thought content: reality based without delusions Suicidal thought are: denied Homicidal thoughts are: denied Hallucinations: denies auditory, denies visual Cognition: other (all spheres impaired by somnolence) Intelligence estimated to be: average Insight: impaired Judgement: impaired Impression The patient's mood has been labile, elevated, with elevated energy. She has had trouble staying away from inappropriate topics like sex and drugs. She has gone back and forth about rehabilitation, but today he is again in favor of going to rehabilitation for her polysubstance abuse. The clinical social worker will make referrals today. Psychiatrically, I will increase her Haldol to 10 mg a.m. , 5 mg at 1400 and 10 mg at at bedtime to target the affective component of her illness. I do not think that this will impair her ability to go to rehabilitation as soon as a bed has been found. Plan (1) Schizoaffective disorder 09/11 - Q 15 min checks for safety - Encourage participation in group and individual counseling - Obtain OP records from previous providers to clarify diagnosis and current meds - Supplemental history from family if possible - Assist the patient to learn and utilize healthy coping strategies - Will need psychiatric aftercare 09/12 -Increase Haldol to 10 mg a.m., 5 mg at 1400, 10 mg at at bedtime -The patient will need redirection away from inappropriate group topics -Encourage patient toward quieting activities (2) Cannabis abuse 09/11 - Recommend abstinence. - Patient is requesting rehab and so will make referrals - Reports that she takes coconut oil to obscure drug screen results. Is asking to take that here, which is not indicated (3) coriciden dependence 09/11 - Gives varying reports but today says that she is using 24 pills daily - Recommend abstinence - Will refer to rehab per her request (4) Alcohol abuse 09/11 - Binge drinks and has had only 2 drinks over last 4-5 days, and is without evidence of withdrawal symptoms - Will monitor VS and order AWSS if indicated, but will hold for now - Will refer to rehab at the patient's request. (5) BORDERLINE PERSONALITY DISORDER 09/11 - Is very manipulative in trying to get her needs met. Will encourage honesty in treatment - Will need to be diligent about consistency with rules while on the unit to prevent splitting - Ideally should have DBT, but limited availability in this area (6) Need for prophylaxis against sexually transmitted diseases 09/11 - Says that she takes Truvada for HIV prophylaxis on a PREP protocol. Will need to clarify with prescriber, obtain WILFRIDO and order ID consult if needed. 09/12 -Staff has been in contact with Dr. Guanaco Blanc's office who have not yet sent records regarding diagnosis and treatment. Will recontact today (7) PCOS (polycystic ovarian syndrome) 09/11 - Ibuprofen prn fro cramps (8) Hypertension 09/11 - Continue Inderal LA 60 mg. AM (9) Seizure 09/11 - Continue home dose of lamictal and primadone Has been reviewed with Dr. Yusuf Mujica Discharge / Aftercare Planning Primary Care Physician: Name: pt does not have one Therapist: Name: pending w psych clinic Senior Analyst Developer: Name: recommended but pt did not follow through Visit Code E&M Code: 11922 Inventory Assets Strengths: Desire for rehab, resourceful Needs: To abstain from all abusable substances Risk Factors Assessment : Yes /single/: Yes Higher / Fall in social status: No Health problems: Yes Mental Health Diagnoses: Yes Substance use disorders: Yes Previous attempt: Yes Previous psychiatric stay: Yes Hopelessness: No Protective Factors Assessment Yazdanism beliefs: Yes : No Responsible for young children: No Employed: No Stable relationships: No Supportive family: No Good rapport with provider: No Data Vital Signs Last 24 Hrs: Date Time Temp Pulse Resp B/P (MAP) Pulse Ox O2 Delivery O2 Flow Rate FiO2 09/12/16 12:48 68 16 148/98 87 137/98 09/12/16 06:49 Meds Administered Last 24 Hrs: Meds Administered (Past 24Hrs) Medications (Trade) Dose Ordered Sig/Rajesh Route Start Time Stop Time Status Last Admin Dose Admin Acetaminophen (Tylenol Tab) 650 mg Q4H PRN PO 09/10/16 23:30 10/10/16 23:29 09/11/16 20:56 650 MG Magnesium Hydroxide (Milk Of Magnesia Susp) 30 ml DAILY PRN PO 09/10/16 23:30 10/10/16 23:29 09/11/16 20:51 30 ML Hydroxyzine HCl (Vistaril Tab) 50 mg HSZ PRN PO 09/10/16 23:30 10/10/16 23:29 09/11/16 20:56 50 MG Hydroxyzine HCl (Vistaril Tab) 25 mg Q4H PRN PO 09/10/16 23:30 10/10/16 23:29 09/11/16 19:18 25 MG Benztropine Mesylate (Cogentin Tab) 0.5 mg BID PO 09/11/16 09:00 10/11/16 08:59 09/12/16 11:55 0.5 MG Emtricitabine/ Tenofovir (Truvada 200-300mg Tab) 1 tab DAILY PO 09/11/16 09:00 10/11/16 08:59 09/12/16 11:56 1 TAB Haloperidol (Haldol Tab) 5 mg TID PO 09/11/16 09:00 10/11/16 08:59 09/12/16 11:55 5 MG Lamotrigine (Lamictal Tab) 100 mg BID PO 09/11/16 09:00 09/11/16 11:13 DC 09/11/16 10:29 100 MG Primidone (Mysoline Tab) 50 mg BID PO 09/11/16 09:00 09/11/16 11:13 DC 09/11/16 10:29 50 MG Propranolol HCl (Inderal [place]) 60 mg DAILY PO 09/11/16 09:00 10/11/16 08:59 09/12/16 11:55 60 MG Valacyclovir HCl (Valtrex Tab) 500 mg DAILY PO 09/11/16 09:00 10/11/16 08:59 09/12/16 11:56 500 MG Prazosin HCl (Prazosin) 1 mg BID PO 09/11/16 09:00 10/11/16 08:59 09/12/16 11:56 1 MG Ibuprofen (Motrin Tab) 600 mg TID PRN PO 09/11/16 11:00 10/11/16 10:59 09/11/16 16:40 600 MG Primidone (Mysoline Tab) 100 mg BID PO 09/11/16 22:00 10/11/16 21:59 09/12/16 11:56 100 MG Primidone (Mysoline Tab) 50 mg 1130 ONCE PO 09/11/16 11:30 09/11/16 11:31 DC 09/11/16 11:43 50 MG Lamotrigine (Lamictal Tab) 200 mg BID PO 09/11/16 22:00 10/11/16 21:59 09/12/16 11:56 200 MG Lamotrigine (Lamictal Tab) 100 mg 1130 ONCE PO 09/11/16 11:30 09/11/16 11:31 DC 09/11/16 11:43 100 MG Melatonin (Melatonin) 10 mg HS PO 09/11/16 22:00 10/11/16 21:59 09/11/16 20:53 10 MG Bisacodyl (Dulcolax Tab) 5 mg NOW ONCE PO 09/11/16 18:00 09/11/16 18:05 DC 09/11/16 20:54 5 MG Lab Results Last 24 Hrs: 09/10/16 18:20 Red Blood Count 4.09, Mean Corpuscular Volume 93.6, Mean Corpuscular Hemoglobin 32.0, Mean Corpuscular Hemoglobin Concent 34.2, Mean Platelet Volume 10.7, Neutrophils (%) (Auto) 48.6, Lymphocytes (%) (Auto) 43.6, Monocytes (%) (Auto) 6.1, Eosinophils (%) (Auto) 0.9, Basophils (%) (Auto) 0.5, Neutrophils # (Auto) 4.24, Lymphocytes # (Auto) 3.81, Monocytes # (Auto) 0.53, Eosinophils # (Auto) 0.08, Basophils # (Auto) 0.04 09/10/16 18:20 Test 09/10/16 18:20 09/10/16 19:30 White Blood Count 8.73 K/uL (4.8-10.8) Red Blood Count 4.09 M/uL (4.2-5.4) Hemoglobin 13.1 g/dL (12.0-16.0) Hematocrit 38.3 % (37-47) Mean Corpuscular Volume 93.6 fL (80-100) Mean Corpuscular Hemoglobin 32.0 pg (25-34) Mean Corpuscular Hemoglobin Concent 34.2 g/dl (32-36) Platelet Count 231 K/uL (130-400) Mean Platelet Volume 10.7 fL (7.4-10.4) Neutrophils (%) (Auto) 48.6 % Lymphocytes (%) (Auto) 43.6 % Monocytes (%) (Auto) 6.1 % Eosinophils (%) (Auto) 0.9 % Basophils (%) (Auto) 0.5 % Neutrophils # (Auto) 4.24 K/uL (1.4-6.5) Lymphocytes # (Auto) 3.81 K/uL (1.2-3.4) Monocytes # (Auto) 0.53 K/uL (0.11-0.59) Eosinophils # (Auto) 0.08 K/uL (0-0.5) Basophils # (Auto) 0.04 K/uL (0-0.2) RDW Standard Deviation 44.5 fL (36.4-46.3) RDW Coefficient of Variation 12.9 % (11.5-14.5) Immature Granulocyte % (Auto) 0.3 % Immature Granulocyte # (Auto) 0.03 K/uL (0.00-0.02) Anion Gap 5.0 mmol/L (3-11) Est Creatinine Clear Calc Drug Dose 96.7 ml/min Estimated GFR () 94.1 Estimated GFR (Non- 81.2 BUN/Creatinine Ratio 16.4 (10-20) Calcium Level 8.6 mg/dl (8.5-10.1) Total Bilirubin 0.2 mg/dl (0.2-1) Aspartate Amino Transf (AST/SGOT) 14 U/L (15-37) Alanine Aminotransferase (ALT/SGPT) 23 U/L (12-78) Alkaline Phosphatase 97 U/L (45-117) Total Protein 6.2 gm/dl (6.4-8.2) Albumin 3.6 gm/dl (3.4-5.0) Globulin 2.6 gm/dl (2.5-4.0) Albumin/Globulin Ratio 1.4 (0.9-2) Thyroid Stimulating Hormone (TSH) 1.640 uIu/ml (0.300-4.500) Salicylates Level 3.4 mg/dl (2.8-20) Acetaminophen Level 6 ug/ml (10-30) Ethyl Alcohol mg/dL < 3.0 mg/dl (0-3) Urine Color YELLOW Urine Appearance CLEAR (CLEAR) Urine pH 6.5 (4.5-7.5) Urine Specific [place] 1.008 (1.000-1.030) Urine Protein NEG (NEG) Urine Glucose (UA) NEG (NEG) Urine Ketones NEG (NEG) Urine Occult Blood 2+ (NEG) Urine Nitrite NEG (NEG) Urine Bilirubin NEG (NEG) Urine Urobilinogen NEG (NEG) Urine Leukocyte Esterase MODERATE (NEG) Urine WBC (Auto) 1-5 /hpf (0-5) Urine RBC (Auto) 0-4 /hpf (0-4) Urine Hyaline Casts (Auto) 0 /lpf (0-5) Urine Epithelial Cells (Auto) 20-30 /lpf (0-5) Urine Bacteria (Auto) NEG (NEG) Urine Opiates Screen NEG (NEG) Urine Methadone, Qualitative NEG (NEG) Urine Barbiturates POS (NEG) Urine Phencyclidine (PCP) Level NEG (NEG) Ur Amphetamine/Methamphetamine NEG (NEG) MDMA (Ecstasy) Screen NEG (NEG) Urine Benzodiazepines Screen NEG (NEG) Urine Cocaine Metabolite NEG (NEG) Urine Marijuana (THC) POS (NEG) Problem Qualifiers (1) Schizoaffective disorder: Schizoaffective disorder type: unspecified Qualified Codes: F25.9 - Schizoaffective disorder, unspecified (2) Hypertension: Hypertension type: unspecified secondary hypertension Qualified Codes: I15.9 - Secondary hypertension, unspecified
[2016-09-12] MEDS ORDERED: NICOTINE POLACRILEX 2 MG GUM MT PRN (13:45)
[2016-09-12] MEDS ORDERED: HALOPERIDOL 5 MG TAB PO SCH (14:00)
[2016-09-12] MEDS: hydrOXYzine HCL 25 MG TAB PO PRN ×2 (17:37→21:09)
[2016-09-12] MEDS: MELATONIN 5 MG PO SCH (21:07)
[2016-09-13] MEDS: EMTRICITABINE/TENOFOVIR TAB PO SCH (09:48)
[2016-09-13] MEDS: PRAZOSIN HCL 1 MG CAP PO SCH ×2 (09:48→21:31)
[2016-09-13] MEDS: PROPRANOLOL HCL 60 MG LA CAP PO SCH (09:48)
[2016-09-13] MEDS: PRIMIDONE 50 MG TAB PO SCH ×2 (09:48→21:31)
[2016-09-13] MEDS: HALOPERIDOL 5 MG TAB PO SCH (09:49)
[2016-09-13] MEDS: BENZTROPINE MESYLATE 1 MG TAB PO SCH ×2 (09:49→21:30)
--- NOTE | 2016-09-13 13:12 | Psychiatric Progress Notes ---
Progress Note Date of Service Sep 13, 2016. Interval History 36 yo female, with past diagnosis of schizoaffective disorder, admitted voluntarily with reports of SI. Just discharged from out unit 1 day earlier after admitting she just said she was suicidal to get a place to stay. Chief Complaint "The Haldol increase has me tired today. Also, I took Vistaril last night, and I think that it was too much." Subjective Patient was seen & assessed interval progress reviewed with Treatment Team. In addition, I met with the patient individually today in order to assess her response to treatment, complete a mental status examination review, and respond to questions and concerns that may arise. Patient has been in bed and sleeping most of the morning, did not get up until noon. She tells me that she is adjusting to her increased dose of haloperidol, and thinks that perhaps it might be better for her if she were to take her 5 mg dose of Haldol in the morning, with a 10 mg tablet at 1400 and another 10 mg tablet at bedtime. The patient had, "it usually takes me a few days to adjust to the medication increase." Today, we talked about her long-term goals, which after some hesitation, now includes going for chemical dependency residential rehabilitation treatment. She then hopes to be able [place] a [place]. We discussed several books which she is currently studying regarding chemical dependency. 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 One of her poems had the line: "start believing the right thing," and when I ask her what the "right belief is," she says "the right belief is what ever I believe." The patient immediately recognized the circular nature of this assertion, and laughed at herself. Review of Systems Constitutional: No fever, No chills, No sweats, No weight loss, No weakness, No fatigue, No problem reported ENT: No hearing loss, No unusual epistaxis, No nasal symptoms, No sore throat, No tinnitus, No dental problems, No trouble swallowing, No problem reported Respiratory: No cough, No sputum, No wheezing, No shortness of breath, No dyspnea on exertion, No dyspnea at rest, No hemoptysis, No problem reported Cardiovascular: No chest pain, No orthopnea, No PND, No edema, No claudication , No palpitations, No problem reported Abdomen: + constipation (she complained of constipation, has been prescribed when necessary Dulcolax), + problem reported (The patient complaining of menstrual cramps earlier in the week, but these reportedly have improved.), No diarrhea Musculoskeletal: No joint pain, No muscle pain, No swelling, No calf pain, No problem reported Neurologic: No memory loss, No paralysis, No weakness, No numbness/tingling, No vertigo, No balance problems, No problem reported Psychiatric: No depression symptoms, No anxiety Integumentary: No rash, No itch, No new/changing skin lesions, No color change , No bleeding, No problem reported Sleep Information Total Hours of Sleep: 7.00 Meal Information Percent of Breakfast Consumed: 100 Percent of Lunch Consumed: 75 Percent of Dinner Consumed: 100 Mental Status Exam During interview pt is: alert and oriented, cooperative Appearance: appropriately dressed, appropriately groomed Eye contact is: good Motor behavior is: steady gait & station Speech: normal in rate, rhythm & volume (, the patient appears to be somewhat sedated, and as she becomes more alert her speech quickens.) Affect: euthymic Mood is: irritable, other ("it's okay. I'm not depressed. I'm just tired.") Thought process: clear, coherent, tangential (the patient remains somewhat attention seeking, but has been more appropriate and less intrusive recently.) Thought content: reality based without delusions Suicidal thought are: denied Homicidal thoughts are: denied Hallucinations: denies auditory, denies visual Cognition: other (all spheres impaired by somnolence) Intelligence estimated to be: average Insight: impaired Judgement: impaired Impression The patient's affect remains somewhat labile, elevated, with elevated energy, but earlier indications are that she may be leveling out on a higher dose of haloperidol. I continue to believe the patient's primary issue is characterologic in nature, but she does demonstrate certain difficulties regulating her mood, and her report is that she does respond favorably to haloperidol. She has continued for 2 days now to say that she does want to go to rehabilitation, and she appears to be motivated as evidenced by the fact that she reading and studying several books about addiction and Narcotics Anonymous. I will be adjusting her medications so that her morning dose of haloperidol is ordered to 5 mg, and her afternoon and evening dose will be 10 mg of haloperidol. Plan (1) Schizoaffective disorder 09/11 - Q 15 min checks for safety - Encourage participation in group and individual counseling - Obtain OP records from previous providers to clarify diagnosis and current meds - Supplemental history from family if possible - Assist the patient to learn and utilize healthy coping strategies - Will need psychiatric aftercare 09/12 -Increase Haldol to 10 mg a.m., 5 mg at 1400, 10 mg at at bedtime -The patient will need redirection away from inappropriate group topics -Encourage patient toward quieting activities 09/13 - initially, the patient tells me that she is in the process of adjusting her medication, and is "very serious" about going to rehabilitation. 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 The patient is clearly unreliable and impulsive. It remains unclear how much of this is attributable to an underlying mood disorder , and how much of it is purely character logic. Because she complains of excess sedation in the morning, and she has, in fact, slept much in the morning , I Will change her medication regimen from haloperidol 10 mg twice a day and 5 mg at 1400-5 mg every morning, and 10 mg at 1400 and at bedtime. (2) Cannabis abuse 09/11 - Recommend abstinence. - Patient is requesting rehab and so will make referrals - Reports that she takes coconut oil to obscure drug screen results. Is asking to take that here, which is not indicated (3) coriciden dependence 09/11 - Gives varying reports but today says that she is using 24 pills daily - Recommend abstinence - Will refer to rehab per her request (4) Alcohol abuse 09/11 - Binge drinks and has had only 2 drinks over last 4-5 days, and is without evidence of withdrawal symptoms - Will monitor VS and order AWSS if indicated, but will hold for now - Will refer to rehab at the patient's request. (5) BORDERLINE PERSONALITY DISORDER 09/11 - Is very manipulative in trying to get her needs met. Will encourage honesty in treatment - Will need to be diligent about consistency with rules while on the unit to prevent splitting - Ideally should have DBT, but limited availability in this area 09/13 - The patient remains impulsive, reactive, and limit testing. Is not clear how motivated to treatment she actually is, and she often reacts to perceived abandonment or rejection with impulsive behavior, such as insisting upon leaving the hospital if she can't be seen immediately by provider. (6) Need for prophylaxis against sexually transmitted diseases 09/11 - Says that she takes Truvada for HIV prophylaxis on a PREP protocol. Will need to clarify with prescriber, obtain WILFRIDO and order ID consult if needed. 09/12 -Staff has been in contact with Dr. Guanaco Blanc's office who have not yet sent records regarding diagnosis and treatment. Will recontact today (7) PCOS (polycystic ovarian syndrome) 09/11 - Ibuprofen prn fro cramps (8) Hypertension 09/11 - Continue Inderal LA 60 mg. AM (9) Seizure 09/11 - Continue home dose of lamictal and primadone Has been reviewed with Dr. Yusuf Mujica Discharge / Aftercare Planning Primary Care Physician: Name: pt does not have one Therapist: Name: pending w psych clinic [employer]: Name: recommended but pt did not follow through Inventory Assets Strengths: Desire for rehab, resourceful Needs: To abstain from all abusable substances Risk Factors Assessment : Yes /single/: Yes Higher / Fall in social status: No Health problems: Yes Mental Health Diagnoses: Yes Substance use disorders: Yes Previous attempt: Yes Previous attempt;highly lethal: No Previous attempt; planned: Yes Previous attempt; didn't tell: Yes Family history of suicide: No Previous psychiatric stay: Yes Hopelessness: No Smoker: Yes Protective Factors Assessment Buddhism beliefs: Yes : No Responsible for young children: No Employed: No Stable relationships: No Supportive family: No Good rapport with provider: No Data Vital Signs Last 24 Hrs: Date Time Temp Pulse Resp B/P (MAP) Pulse Ox O2 Delivery O2 Flow Rate FiO2 09/13/16 06:34 09/12/16 12:48 68 16 148/98 87 137/98 Meds Administered Last 24 Hrs: Meds Administered (Past 24Hrs) Medications (Trade) Dose Ordered Sig/Rajesh Route Start Time Stop Time Status Last Admin Dose Admin Primidone (Mysoline Tab) 100 mg BID PO 09/11/16 22:00 10/11/16 21:59 09/13/16 09:48 100 MG Lamotrigine (Lamictal Tab) 200 mg BID PO 09/11/16 22:00 10/11/16 21:59 09/13/16 09:48 200 MG Melatonin (Melatonin) 10 mg HS PO 09/11/16 22:00 10/11/16 21:59 09/12/16 21:07 10 MG Bisacodyl (Dulcolax Tab) 5 mg NOW ONCE PO 09/11/16 18:00 09/11/16 18:05 DC 09/11/16 20:54 5 MG Bisacodyl (Dulcolax Tab) 5 mg BID PRN PO 09/11/16 18:00 10/11/16 17:59 09/12/16 21:09 5 MG Haloperidol (Haldol Tab) 10 mg BID PO 09/12/16 22:00 10/12/16 21:59 09/13/16 09:49 10 MG Problem Qualifiers (1) Schizoaffective disorder: Schizoaffective disorder type: unspecified Qualified Codes: F25.9 - Schizoaffective disorder, unspecified (2) Hypertension: Hypertension type: unspecified secondary hypertension Qualified Codes: I15.9 - Secondary hypertension, unspecified
[2016-09-13] MEDS ORDERED: CHLORPROMAZINE HCL 25 MG TAB PO PRN (13:30)
[2016-09-13] MEDS ORDERED: CHLORPROMAZINE HCL 100 MG TAB PO STA (13:30)
[2016-09-13 13:31] VITALS: BP 143/93; PULSE 71; TEMP 36.9
[2016-09-13] MEDS ORDERED: CHLORPROMAZINE HCL 25 MG TAB PO ONE (14:00)
[2016-09-13] MEDS: ACETAMINOPHEN 325 MG TAB PO PRN (14:02)
[2016-09-13] MEDS: MELATONIN 5 MG PO SCH (21:30)
[2016-09-13] MEDS: BISACODYL 5 MG TABEC PO PRN (21:32)
[2016-09-13] MEDS ORDERED: HALOPERIDOL 5 MG TAB PO SCH (22:00)
[2016-09-14] MEDS ORDERED: HALOPERIDOL 5 MG TAB PO SCH ×2 (09:00→14:00)
[2016-09-14 10:45] VITALS: BP 115/76; PULSE 76
[2016-09-14] MEDS: BENZTROPINE MESYLATE 1 MG TAB PO SCH (10:52)
[2016-09-14] MEDS: PROPRANOLOL HCL 60 MG LA CAP PO SCH (10:53)
[2016-09-14] MEDS: PRIMIDONE 50 MG TAB PO SCH (10:53)
[2016-09-14] MEDS: PRAZOSIN HCL 1 MG CAP PO SCH (10:54)
[2016-09-14] MEDS: EMTRICITABINE/TENOFOVIR TAB PO SCH (10:54)
[2016-09-14] MEDS: ACETAMINOPHEN 325 MG TAB PO PRN (10:55)
[2016-09-14] MEDS ORDERED: HLD5 PO (11:15)
[2016-09-14] MEDS ORDERED: HALO10TA17 PO (11:15)
--- NOTE | 2016-09-14 11:29 | Discharge Instructions ---
Discharge Information Report Includes Report will include the: Discharge Instructions & Summary Admission Admission Date / Time: Sep 10, 2016 at 23:15 Reason for Admission: Mental Health Eval Discharge Discharge Diagnosis / Problem: schizoaffective disorder Condition at Discharge: Fair Discharge Goals Goal(s): Improve function, Improve disease control Activity Recommendations Activity Limitations: resume your previous activity . Instructions / Follow-Up Instructions / Follow-Up . SPECIAL CARE INSTRUCTIONS: 1. Follow through with your scheduled aftercare appointments. If unable to keep an appointment, please call to reschedule. 2. Take your medication only as prescribed. Medication should not be changed or stopped without the approval of your doctor. In the event of worsening symptoms or concerns about side effects, contact your doctor immediately. 3. Utilize new healthy coping skills, anger management skills, and stress management skills learned during your hospitalization. Journal feelings and process them with a support person. Identify stressors or situations that may result in relapse, deterioration or inappropriate behaviors and develop a plan to deal with those issues. 4. If your coping skills are ineffective and you are in crisis, contact your outpatient providers for direction. If unable to reach your providers, please call the CAN HELP LINE AT or go to the closest Emergency Room. 5. Avoid alcohol and un-prescribed drugs. 6. You have been provided with the Mental Health Advance Directives Pamphlet for your review. AFTERCARE APPOINTMENTS: * Please call your insurance company prior to your scheduled appointment to confirm your aftercare providers are covered. Take your insurance information to your appointments. . Discharge / Aftercare Planning Primary Care Physician: Name: pt does not have one Therapist: Name Of Therapist: [facility] Account Management Specialist: Name: recommended but pt did not follow through . Follow-Up Care Plan for Follow-Up Care: Patient signed a 72 hour notice to leave care yesterday, she was reassessed today and is still focussed on AMA discharge. Current Hospital Diet Patient's current hospital diet: Regular Diet Discharge Diet Recommended Diet: Regular Diet Procedures Procedures Performed: No Pending Studies Pending Studies at Discharge: No Medical Emergencies . Who to Call and When: Medical Emergencies: For questions or emergencies related to your hospital stay, please contact the Inpatient Behavioral Health Unit at [phone]. A threat analyst is on-call 23/09 for the Behavioral Health Unit for emergencies At any time you feel your situation is an emergency, you may also call 911 immediately. . Non-Emergent Contact Non-Emergency issues call your: Therapist Contact Number: patient reports having contact info for [facility] and wants to leave AMA Call Non-Emergent contact if: you have any medication questions Advance Directives Existing Advance Directive: No Do You Have an Existing Mental: No Existing Living Will: No Existing Power of Etl Analyst: No Advance Directives Info Given: To Pt/S.O. Advance Directives Reason: Declines as Mental Health Visit. Discharge Summary Admission HPI Per the Admitting provider: Denisha Rocha is a 36 yo woman who was just on our unit for two days after presenting to the ED with SI. She was discharged just 2 days ago at which time she said that she was not suicidal and said she was just saying that to have a place to stay. She has been using the resources of [facility] and on Friday night stayed at a hotel paid for by them. Today she says that has continued to abuse coricidin on a daily basis (previously said she abused on once per week) with a drug screen that is positive for barbiturates and marijuana. Per the ED notes, Can Leslye was called to [facility] last night where the patient was making suicidal statements to OD on her meds, and later also said that she didn't get her prescriptions filled at [facility] because she feared she would OD on them. She said that she took Remeron but it was not clear if she took more than prescribed. Today she is somnolent and poorly motivated to get out of bed for the interview. Eventually she is able to say that she was "stressed" last night, "thinking too much" which led her to make suicidal statements. She told the staff that she didn't like [facility] and didn't want to continue to stay there. Today she says that she "just needed some sleep" and is no longer having SI. She admits to feeling "bitchy" because she is having her period. She wants to be able to go to rehab for her drug addictions and is willing to go directly from the hospital. She denies any aud/vis hallucinations, SI/HI. Admission Exam Per the Admitting provider: see H&P. Hospital Course (1) Schizoaffective disorder 09/11 - Q 15 min checks for safety - Encourage participation in group and individual counseling - Obtain OP records from previous providers to clarify diagnosis and current meds - Supplemental history from family if possible - Assist the patient to learn and utilize healthy coping strategies - Will need psychiatric aftercare 09/12 -Increase Haldol to 10 mg a.m., 5 mg at 1400, 10 mg at at bedtime -The patient will need redirection away from inappropriate group topics -Encourage patient toward quieting activities 09/13 - initially, the patient tells me that she is in the process of adjusting her medication, and is "very serious" about going to rehabilitation. No more than a few minutes after I saw her, she told staff that she "wants to leave right away," stating a mcc, and then take a bus to [place] where she has a family service caseworker. The patient is clearly unreliable and impulsive. It remains unclear how much of this is attributable to an underlying mood disorder , and how much of it is purely character logic. Because she complains of excess sedation in the morning, and she has, in fact, slept much in the morning , I Will change her medication regimen from haloperidol 10 mg twice a day and 5 mg at 1400-5 mg every morning, and 10 mg at 1400 and at bedtime. (2) Cannabis abuse 09/11 - Recommend abstinence. - Patient is requesting rehab and so will make referrals - Reports that she takes coconut oil to obscure drug screen results. Is asking to take that here, which is not indicated 09/14--attempted brief counseling around substance abuse issues, patient refusing to engage. (3) coriciden dependence 09/11 - Gives varying reports but today says that she is using 24 pills daily - Recommend abstinence - Will refer to rehab per her request 09/14--patient has been consistently refusing rehab, she is refusing outpatient counseling specific to substance abuse. She will not engage in brief intervention around substance use. (4) Alcohol abuse 09/11 - Binge drinks and has had only 2 drinks over last 4-5 days, and is without evidence of withdrawal symptoms - Will monitor VS and order AWSS if indicated, but will hold for now - Will refer to rehab at the patient's request. (5) BORDERLINE PERSONALITY DISORDER 09/11 - Is very manipulative in trying to get her needs met. Will encourage honesty in treatment - Will need to be diligent about consistency with rules while on the unit to prevent splitting - Ideally should have DBT, but limited availability in this area 09/13 - The patient remains impulsive, reactive, and limit testing. Is not clear how motivated to treatment she actually is, and she often reacts to perceived abandonment or rejection with impulsive behavior, such as insisting upon leaving the hospital if she can't be seen immediately by provider. 09/14 --disruptive the the néstor yesterday, signed 72 hour notice and is requesting to leave treatment AMA. She hasn't been attending programming. (6) Need for prophylaxis against sexually transmitted diseases 09/11 - Says that she takes Truvada for HIV prophylaxis on a PREP protocol. Will need to clarify with prescriber, obtain WILFRIDO and order ID consult if needed. 09/12 -Staff has been in contact with Dr. Guanaco Blanc's office who have not yet sent records regarding diagnosis and treatment. Will recontact today (7) PCOS (polycystic ovarian syndrome) 09/11 - Ibuprofen prn fro cramps (8) Hypertension 09/11 - Continue Inderal LA 60 mg. AM (9) Seizure 09/11 - Continue home dose of lamictal and primadone Risk Factors Assessment : Yes /single/: Yes Higher / Fall in social status: No Health problems: Yes Mental Health Diagnoses: Yes Substance use disorders: Yes Previous attempt: Yes Previous attempt;highly lethal: No Previous attempt; planned: Yes Previous attempt; didn't tell: Yes Family history of suicide: No Previous psychiatric stay: Yes Hopelessness: No Smoker: Yes Protective Factors Assessment Episcopalian beliefs: Yes : No Responsible for young children: No Employed: No Stable relationships: No Supportive family: No Good rapport with provider: No Day of Discharge Assessment Denisha signed a 72 hour notice yesterday afternoon after a period of acting out. I agree with Dr. Mujica's opinion that her residual symptoms are related to personality disorder and mainly slept/refused programming since signed. She is alert, perseverative on discharge, she exhibits no evidence of psychosis and repeatedly admitted to malingering to gain "a place to stay". I reviewed her previous hospitalization. There is no active criteria to pursue and involuntary commitment and she continues to request AMA discharge. She is aware that I am not pleased with her aftercare plan and despite multiple attempts to engage in treatment for her substance abuse she is still refusing. There is appears to be no therapeutic advantage to continue her inpatient hospitalization. Her thoughts are concrete but organized, she denies SI/HI/ anderson and states she will continue her medication. She understands that she is only being discharged with 30 day supply and repeatedly states she will make necessary calls. Reviewed that it is extremely unlikely that she will be able to be seen by a psychiatric provider within 30 days and discussed the walk in therapy clinic at [facility] [employer] as it's unclear to me that she will be [facility] given circumstances around both of her inpatient stays. She reports having a friend that has agreed to allow her to stay with him until her check arrives at the beginning of the month. She is not hypersexual related to anu, she makes admittedly makes provocative statements about S&M and liking to be choked to distress staff and co-patients. Laboratory Test 09/10/16 18:20 09/10/16 19:30 White Blood Count 8.73 Red Blood Count 4.09 Hemoglobin 13.1 Hematocrit 38.3 Mean Corpuscular Volume 93.6 Mean Corpuscular Hemoglobin 32.0 Mean Corpuscular Hemoglobin Concent 34.2 Platelet Count 231 Mean Platelet Volume 10.7 Neutrophils (%) (Auto) 48.6 Lymphocytes (%) (Auto) 43.6 Monocytes (%) (Auto) 6.1 Eosinophils (%) (Auto) 0.9 Basophils (%) (Auto) 0.5 Neutrophils # (Auto) 4.24 Lymphocytes # (Auto) 3.81 Monocytes # (Auto) 0.53 Eosinophils # (Auto) 0.08 Basophils # (Auto) 0.04 RDW Standard Deviation 44.5 RDW Coefficient of Variation 12.9 Immature Granulocyte % (Auto) 0.3 Immature Granulocyte # (Auto) 0.03 Sodium Level 137 Potassium Level 3.5 Chloride Level 104 Carbon Dioxide Level 28 Anion Gap 5.0 Blood Urea Nitrogen 15 Creatinine 0.91 Est Creatinine Clear Calc Drug Dose 96.7 Estimated GFR () 94.1 Estimated GFR (Non- 81.2 BUN/Creatinine Ratio 16.4 Random Glucose 118 Calcium Level 8.6 Total Bilirubin 0.2 Aspartate Amino Transferase (AST) 14 Alanine Aminotransferase (ALT) 23 Alkaline Phosphatase 97 Total Protein 6.2 Albumin 3.6 Globulin 2.6 Albumin/Globulin Ratio 1.4 Thyroid Stimulating Hormone (TSH) 1.640 Salicylates Level 3.4 Acetaminophen Level 6 Ethyl Alcohol mg/dL < 3.0 Urine Color YELLOW Urine Appearance CLEAR Urine pH 6.5 Urine Specific Imperial 1.008 Urine Protein NEG Urine Glucose (UA) NEG Urine Ketones NEG Urine Occult Blood 2+ Urine Nitrite NEG Urine Bilirubin NEG Urine Urobilinogen NEG Urine Leukocyte Esterase MODERATE Urine WBC (Auto) 1-5 Urine RBC (Auto) 0-4 Urine Hyaline Casts (Auto) 0 Urine Epithelial Cells (Auto) 20-30 Urine Bacteria (Auto) NEG Urine Synthetic Stimulants Pending Urine Butalbital Level Pending Urine Opiates Screen NEG Urine Methadone, Qualitative NEG Urine Barbiturates POS Urine Phencyclidine (PCP) Level NEG Ur Amphetamine/Methamphetamine NEG MDMA (Ecstasy) Screen NEG Urine Amobarbital Level Pending Urine Pentobarbital Level Pending Urine Phenobarbital Level Pending Urine Secobarbital Level Pending Urine Benzodiazepines Screen NEG Urine Cocaine Metabolite NEG Cannabinoids Comment Pending Urine Synthetic Cannabinoids Pending Ur Synthetic Cannabinoids Confirm Pending Urine Marijuana (THC) POS Urine Marijuana (THC Carboxy Acid) Pending Total Time Total Time Spent (min): Greater than 30 minutes Total Time Included: examination of the patient, medication reconciliation Tobacco Cessation at Discharge Smoking Status: Current Every Day Smoker FDA approved Prescription: declined med & out pt counseling Problem Qualifiers (1) Schizoaffective disorder: Schizoaffective disorder type: unspecified Qualified Codes: F25.9 - Schizoaffective disorder, unspecified (2) Hypertension: Hypertension type: unspecified secondary hypertension Qualified Codes: I15.9 - Secondary hypertension, unspecified
== END 2016-09-14 12:45 | disposition left against medical advice (07) | DRG 885 ==
LOC: EDBD 17:33 → C.EDA 17:36 → C.MHU 23:15
PROVIDERS: ADMIT Psychiatry & Neurology Child & Adolescent Psychiatry; ATTEND Psychiatry & Neurology Child & Adolescent Psychiatry
DX: F25.9 Schizoaffective disorder, unspecified (principal); R45.851 Suicidal ideations; F17.200 Nicotine dependence, unspecified, uncomplicated; F60.3 Borderline personality disorder; K58.9 Irritable bowel syndrome, unspecified; F32.9 Major depressive disorder, single episode, unspecified; F12.10 Cannabis abuse, uncomplicated; F10.10 Alcohol abuse, uncomplicated; I15.9 Secondary hypertension, unspecified; E28.2 Polycystic ovarian syndrome; Z91.19 Patient's noncompliance with other medical treatment and regimen

== ENCOUNTER 2016-09-18 15:02 | Inpatient (IN) | payer OTHER ==
[2016-09-18] VITALS (7 sets, daily range): BP systolic 84–99; BP diastolic 58–64; PULSE 59–69; TEMP 36.3; O2SAT 92–97; Ht 162.6 cm; Wt 113.0 kg
[~2016-09-18] VITALS: Ht 162.6 cm; Wt 113.0 kg
[~2016-09-18 15:02] MED LIST changes: -ATR25 PO; +CGN1 PO; -CGN5 PO; +HALO10TA17 PO; -INDSR60 PO; +LAMO200T38 PO; -LMC100 PO; +MELATAB2 PO; -MYS50 PO; -Melatonin PO; -PRAZ1CAP10 PO; +PRIM50TA29 PO; -PROP20TA4 PO; +PROP60CA5 PO; -PRZ1 PO; -TRV PO; -VLT500 PO
[2016-09-18] MEDS ORDERED: SODIUM CHLORIDE 0.9% 1000ML 1,000 ML IV STA ×3 (15:24→16:52)
[2016-09-18 15:52] LABS: BASO % 0.9 %; BASO ABS # 0.08 K/uL (0-0.2); COMPLETE YES; EOS % 1.8 %; HEMATOCRIT 42.4 % (37-47); IG% 0.3 %; LYMPH % 40.2 %; LYMPH ABS # 3.65 K/uL (1.2-3.4); MEAN CELL VOLUME 95.3 fL (80-100); MEAN CORPUSCULAR HEMOGLOBIN 31.5 pg (25-34); MEAN PLATELET VOLUME 11.1 fL (7.4-10.4); MONO % 7.7 %; NEUT % 49.1 %; PLATELET COUNT 287 K/uL (130-400); RED BLOOD COUNT 4.45 M/uL (4.2-5.4); WHITE BLOOD COUNT 9.07 K/uL (4.8-10.8)
[2016-09-18 15:53] LABS: MANUAL MICROSCOPIC REQUIRED? NO; REVIEW REQ? NO; URINE APPEARANCE CLEAR (CLEAR); URINE BILIRUBIN NEG (NEG); URINE COLOR YELLOW; URINE EPITHELIAL CELL AUTO >30 /lpf (0-5); URINE NITRITE NEG (NEG); URINE PH 6.5 (4.5-7.5); UROBILINOGEN NEG (NEG); ZZUR CULT IF INDIC CLEAN CATCH YES
--- NOTE | 2016-09-18 16:04 | EMERGENCY ROOM VISIT NOTE ---
History Report prepared by Wale: Michelle Ford Under the Supervision of: Dr. Jacque Kessler M.D. First contact with patient: 15:06 Chief Complaint: OVERDOSE (INTENTIONAL) Stated Complaint: OVERDOSE History of Present Illness The patient is a 36 year old female who presents to the Emergency Room with complaints of a sudden persistent overdose that occurred today at 1430. The patient states that she has not used drugs since July. She states that yesterday she became involved with another girl and smoked crack. The patient states that she was pressured by this girl to do the drugs. She states that this morning she had a headache and her blood pressure was elevated. The patient states that she took two Vistaril and two Labetalol this morning. She states that she became upset with herself and took 16 10 mg Haldol tablets at 1430. The patient states that she was upset that she screwed up by smoking the crack. She states that the Haldol was the strongest medication she had on hand. The patient states that she took the medication to accidently . Source of History: patient Onset: today at 1430 Position: other (global) Quality: other (accidental overdose) Timing: other (sudden, persistent) Associated Symptoms: + headache Review of Systems See HPI for pertinent positives & negatives. A total of 10 systems reviewed and were otherwise negative. Past Medical & Surgical Medical Problems: (1) Alcohol intoxication (2) BORDERLINE PERSONALITY DISORDER (3) Cannabis abuse (4) coriciden dependence (5) Depression (6) Diverticulosis (7) Hypertension (8) IBS (irritable bowel syndrome) (9) Migraine (10) Need for prophylaxis against sexually transmitted diseases (11) PCOS (polycystic ovarian syndrome) (12) Prolonged Q-T interval on ECG (13) Schizoaffective disorder (14) Seizure (15) Suicidal ideation (16) Ulcerative colitis Social History Problems: (1) Alcohol abuse Family History Patient reports no known family medical history. Social History Smoking Status: Current Every Day Smoker Drug Use: cocaine Marital Status: single Occupation Status: disabled Current/Historical Medications Scheduled Benztropine Mesylate (Cogentin), 0.5 MG PO BID Coconut Oil (Bulk) (Coconut Oil), 1,000 MG PO DAILY Emtricitabine/Temofovir (Truvada 200/300MG), 1 TAB PO DAILY Haloperidol (Haloperidol), 5 MG PO QAM Haloperidol (Haldol), 1 TAB PO BID Hydroxyzine HCl (Hydroxyzine HCl), 25 MG PO Q4H Lamotrigine (Lamictal), 200 MG PO BID Melatonin (Melatonin Maximum Strengt), 2 TAB PO HS Prazosin Hcl (Prazosin), 1 MG PO BID Primidone (Mysoline), 100 MG PO BID Probiotic Product (Probiotic), 1 TAB PO DAILY Propranolol La (Inderal La), 60 MG PO DAILY Valacyclovir (Valtrex), 1 TAB PO DAILY Scheduled PRN Acetaminophen (Tylenol), 1,000 MG PO Q6 PRN for Headache or Pain Allergies Coded Allergies: Ethanol (Verified Allergy, Mild, 09/10/16) Thioridazine (Verified Allergy, Mild, 09/10/16) Atropine (Verified Adverse Reaction, Severe, SEIZURES, 09/10/16) Physical Exam Vital Signs Date Time Temp Pulse Resp B/P (MAP) Pulse Ox O2 Delivery O2 Flow Rate FiO2 09/18/16 17:54 74 19 96 09/18/16 17:46 92/52 09/18/16 17:39 72 96 09/18/16 17:36 90/45 09/18/16 17:33 68/47 09/18/16 17:24 74 20 97 09/18/16 17:19 75 22 97 09/18/16 17:16 85/44 09/18/16 17:10 96 Room Air 09/18/16 17:04 75 22 97 09/18/16 16:59 109/52 09/18/16 16:57 78 27 96 09/18/16 16:52 77 20 09/18/16 16:47 77 20 09/18/16 16:46 74/38 09/18/16 16:32 79 21 96 09/18/16 16:31 87/37 09/18/16 16:17 79 21 96 09/18/16 16:16 94/44 09/18/16 16:03 78 12 100/45 97 09/18/16 16:02 78 21 96 09/18/16 16:01 100/45 09/18/16 15:47 76 26 96 09/18/16 15:32 75 28 97 09/18/16 15:21 117/57 09/18/16 15:19 74 09/18/16 15:11 96 Room Air 09/18/16 15:11 36.8 74 10 133/73 97 Room Air 09/18/16 15:06 133/73 Physical Exam Vital signs reviewed. General: Well-appearing female, in no significant distress. Shaky, diaphoretic. HEENT: No scleral icterus, PERRLA, neck supple. Atraumatic. Cardiovascular: Regular rate and rhythm, no extra sounds. Pulmonary: Clear to auscultation bilaterally, normal work of breathing. Abdomen: Soft, nontender, nondistended, positive bowel sounds. Musculoskeletal: Atraumatic, no peripheral edema. Neurologic: Patient awake alert and oriented x 3 Skin: Warm, dry, no rash Psych: Positive suicidal ideation, negative homicidal ideation, questionably delusional. Medical Decision & Procedures Laboratory Results 09/18/16 15:20 Red Blood Count 4.45, Mean Corpuscular Volume 95.3, Mean Corpuscular Hemoglobin 31.5, Mean Corpuscular Hemoglobin Concent 33.0, Mean Platelet Volume 11.1, Neutrophils (%) (Auto) 49.1, Lymphocytes (%) (Auto) 40.2, Monocytes (%) (Auto) 7.7, Eosinophils (%) (Auto) 1.8, Basophils (%) (Auto) 0.9, Neutrophils # (Auto) 4.45, Lymphocytes # (Auto) 3.65, Monocytes # (Auto) 0.70, Eosinophils # (Auto) 0.16, Basophils # (Auto) 0.08 09/18/16 15:20 Test 09/18/16 15:20 09/18/16 15:25 09/18/16 15:48 White Blood Count 9.07 K/uL (4.8-10.8) Red Blood Count 4.45 M/uL (4.2-5.4) Hemoglobin 14.0 g/dL (12.0-16.0) Hematocrit 42.4 % (37-47) Mean Corpuscular Volume 95.3 fL (80-100) Mean Corpuscular Hemoglobin 31.5 pg (25-34) Mean Corpuscular Hemoglobin Concent 33.0 g/dl (32-36) Platelet Count 287 K/uL (130-400) Mean Platelet Volume 11.1 fL (7.4-10.4) Neutrophils (%) (Auto) 49.1 % Lymphocytes (%) (Auto) 40.2 % Monocytes (%) (Auto) 7.7 % Eosinophils (%) (Auto) 1.8 % Basophils (%) (Auto) 0.9 % Neutrophils # (Auto) 4.45 K/uL (1.4-6.5) Lymphocytes # (Auto) 3.65 K/uL (1.2-3.4) Monocytes # (Auto) 0.70 K/uL (0.11-0.59) Eosinophils # (Auto) 0.16 K/uL (0-0.5) Basophils # (Auto) 0.08 K/uL (0-0.2) RDW Standard Deviation 46.4 fL (36.4-46.3) RDW Coefficient of Variation 13.3 % (11.5-14.5) Immature Granulocyte % (Auto) 0.3 % Immature Granulocyte # (Auto) 0.03 K/uL (0.00-0.02) Anion Gap 7.0 mmol/L (3-11) Est Creatinine Clear Calc Drug Dose 85.5 ml/min Estimated GFR () 74.8 Estimated GFR (Non- 64.5 BUN/Creatinine Ratio 13.3 (10-20) Calcium Level 8.7 mg/dl (8.5-10.1) Phosphorus Level 3.7 mg/dl (2.5-4.9) Magnesium Level 2.2 mg/dl (1.8-2.4) Total Bilirubin 0.2 mg/dl (0.2-1) Direct Bilirubin < 0.1 mg/dl (0-0.2) Aspartate Amino Transf (AST/SGOT) 20 U/L (15-37) Alanine Aminotransferase (ALT/SGPT) 29 U/L (12-78) Alkaline Phosphatase 98 U/L (45-117) Total Creatine Kinase 143 U/L (26-192) Total Protein 6.9 gm/dl (6.4-8.2) Albumin 3.8 gm/dl (3.4-5.0) Salicylates Level 3.4 mg/dl (2.8-20) Acetaminophen Level < 2 ug/ml (10-30) Urine Color YELLOW Urine Appearance CLEAR (CLEAR) Urine pH 6.5 (4.5-7.5) Urine Specific Joy 1.020 (1.000-1.030) Urine Protein TRACE (NEG) Urine Glucose (UA) NEG (NEG) Urine Ketones NEG (NEG) Urine Occult Blood 2+ (NEG) Urine Nitrite NEG (NEG) Urine Bilirubin NEG (NEG) Urine Urobilinogen NEG (NEG) Urine Leukocyte Esterase LARGE (NEG) Urine WBC (Auto) 10-30 /hpf (0-5) Urine RBC (Auto) 10-30 /hpf (0-4) Urine Hyaline Casts (Auto) 1-5 /lpf (0-5) Urine Epithelial Cells (Auto) >30 /lpf (0-5) Urine Bacteria (Auto) 1+ (NEG) Urine Test NEG (NEG) Urine Opiates Screen NEG (NEG) Urine Methadone, Qualitative NEG (NEG) Urine Barbiturates POS (NEG) Urine Phencyclidine (PCP) Level NEG (NEG) Ur Amphetamine/Methamphetamine NEG (NEG) MDMA (Ecstasy) Screen NEG (NEG) Urine Benzodiazepines Screen NEG (NEG) Urine Cocaine Metabolite POS (NEG) Urine Marijuana (THC) POS (NEG) Ethyl Alcohol mg/dL < 3.0 mg/dl (0-3) Laboratory results per my review. Medications Administered Medications (Trade) Dose Ordered Sig/Rajesh Route Start Time Stop Time Status Last Admin Dose Admin Sodium Chloride 1,000 ml @ 999 mls/hr Q1H1M STAT IV 09/18/16 15:24 09/18/16 16:24 DC 09/18/16 15:37 999 MLS/HR Sodium Chloride 1,000 ml @ 200 mls/hr Q5H STAT IV 09/18/16 15:24 09/18/16 19:14 DC 09/18/16 15:38 200 MLS/HR Sodium Chloride 1,000 ml @ 999 mls/hr Q1H1M STAT IV 09/18/16 16:52 09/18/16 17:52 DC 09/18/16 17:01 999 MLS/HR Parenteral Electrolyte Solution 1,000 ml @ 150 mls/hr Q6H40M IV 09/18/16 17:45 10/18/16 17:44 09/18/16 19:51 150 MLS/HR ECG Indication: toxicologic Rate (beats per minute): 77 Rhythm: normal sinus Findings: nonspecific-ST abn, prolonged QT, other (QTC 536) ED Course 1523: Past medical records reviewed. The patient was evaluated in room B2. A complete history and physical examination was performed. 1524: Ordered Sodium Chloride 1000 ml @ 200 mls/hr IV, Sodium Chloride 1000 ml @ 999 mls/hr IV. 1552: The psych case monitor spoke to the patient and the patient states that she does not want to kill herself, and wants to go to rehab. 1652: Per nursing staff the patient has become hypotensive and has fallen asleep. She will be evaluated for further treatment and evaluation. Ordered Sodium Chloride 1000 ml @ 999 mls/hr IV. 1716: I discussed the patients case with SANTIAGO Dixon. She is going to evaluate the patient for further treatment. Medical Decision Differential diagnosis: Etiologies such as mood disorder, infection, hypoglycemia, electrolyte abnormalities, cardiac sources, intracerebral event, toxicologic, neurologic, as well as others were entertained. This patient was evaluated and appeared to be in no significant distress. Patient admits to taking 160 mg of oral Haldol. Initially the patient is awake , talking and somewhat jittery. Laboratory work reveals the patient is positive for barbiturates, cocaine and marijuana. Throughout the patient's stay , she became hypotensive and groggy. She was given 3 L of IV normal saline solution with improvement in the blood pressure. Patient's QTc is prolonged on EKG. Poison control recommendations are supportive care. We will monitor telemetry and seizure precautions. I did discuss the case with Dr. Reyes of the hospitalist service. She has agreed to evaluate the patient for further management. Medication Reconcilliation Current Medication List: was personally reviewed by me Blood Pressure Screening Patient's blood pressure: Low blood pressure Consults Time Called: 1652 Consulting Physician: SANTIAGO Dixon Returned Call: 1715 I discussed the patients case with SANTIAGO Dixon. She is going to evaluate the patient for further treatment. Impression Primary Impression: Medication overdose Additional Impressions: Prolonged Q-T interval on ECG Hypotension Scribe Attestation The scribe's documentation has been prepared under my direction and personally reviewed by me in its entirety. I confirm that the note above accurately reflects all work, treatment, procedures, and medical decision making performed by me. Departure Information Dispostion Being Evaluated By Hospitalist Referrals No Doctor, Assigned (PCP) Problem Qualifiers
[2016-09-18 16:14] LABS: ALT/SGPT 29 U/L (12-78); BLOOD UREA NITROGEN 15 mg/dl (7-18); BUN/CREATININE RATIO 13.3 (10-20); CALCIUM 8.7 mg/dl (8.5-10.1); CARBON DIOXIDE 26 mmol/L (21-32); CHLORIDE 105 mmol/L (98-107); GLUCOSE 114 mg/dl (70-99); POTASSIUM 3.7 mmol/L (3.5-5.1); SODIUM 138 mmol/L (136-145)
[2016-09-18 16:17] LABS: ALKALINE PHOSPHATASE 98 U/L (45-117); AST/SGOT 20 U/L (15-37)
[2016-09-18 16:19] LABS: ACETAMINOPHEN < 2 ug/ml (10-30)
[2016-09-18] MEDS ORDERED: PROB1TAB16 PO (16:20)
[2016-09-18] MEDS ORDERED: COCO1OIL2 PO (16:20)
[2016-09-18] MEDS ORDERED: TYLOTC500 PO (16:20)
[2016-09-18 16:34] LABS: BENZODIAZEPINE, URINE NEG (NEG); COCAINE,URINE POS (NEG); PHENCYCLIDINE, URINE NEG (NEG)
[2016-09-18] MEDS ORDERED: ALBUT/IPRATROP 3MG/0.5MG NEB 3 ML VIAL INH PRN (17:45)
[2016-09-18] MEDS ORDERED: LORAZEPAM 2 MG/ML 1 ML VIAL IV PRN (17:45)
--- NOTE | 2016-09-18 18:00 | Critical Care Consultation ---
Critical Care Consultation Date of Consultation: Sep 18, 2016. Attending Physician: Rafat Reyes MD Reason for Consultation: Intentional drug overdose, prolonged QTc, History of Present Illness History obtained from prior records as well as history from the patient. The patient is uncooperative with producing history stating she is "tired and sleepy " and "I just told 3 other people" Patient is a 36-year-old female with a history of possible schizoaffective disorder versus borderline personality disorder, PTSD, depression with multiple suicide attempts in the past, and long-standing history of polysubstance abuse particularly sympathomimetics who presented to the ED after overdose on Haldol at approximately 1430. She had reportedly taken 1610 mg Haldol tablets in attempt to hurt herself. This was after going on a reported $1000 crack cocaine binge. Patient currently denies chest pain or shortness of breath, refuses to answer additional questions. She denies a history of IV drug use, admits to smoking marijuana and cocaine. When questions about Truvada in her medication history she reports that she takes it as a preventative. While in the emergency department she became hypotensive requiring fluid resuscitation. During my evaluation she is arousable with voice, uncooperative for the exam however not acutely agitated, nor somnolent. Past Medical/Surgical History History of polysubstance abuse: Coricidin, crack cocaine, marijuana Borderline personality disorder Reported seizure disorder History of self-injurious behavior (cutting several months ago) History of suicidal ideation with attempts History of mental health hospitalizations Family History Patient reports no known family medical history. Social History Smoking Status: Current Every Day Smoker Alcohol Use: none (denies) Drug Use: cocaine (smokes crack cocaine) Marital Status: single Occupation Status: disabled Allergies Coded Allergies: Ethanol (Verified Allergy, Mild, 09/10/16) Thioridazine (Verified Allergy, Mild, 09/10/16) Atropine (Verified Adverse Reaction, Severe, SEIZURES, 09/10/16) Home Medications Scheduled Benztropine Mesylate (Cogentin), 0.5 MG PO BID Coconut Oil (Bulk) (Coconut Oil), 1,000 MG PO DAILY Emtricitabine/Temofovir (Truvada 200/300MG), 1 TAB PO DAILY Haloperidol (Haloperidol), 5 MG PO QAM Haloperidol (Haldol), 1 TAB PO BID Hydroxyzine HCl (Hydroxyzine HCl), 25 MG PO Q4H Lamotrigine (Lamictal), 200 MG PO BID Melatonin (Melatonin Maximum Strengt), 2 TAB PO HS Prazosin Hcl (Prazosin), 1 MG PO BID Primidone (Mysoline), 100 MG PO BID Probiotic Product (Probiotic), 1 TAB PO DAILY Propranolol La (Inderal La), 60 MG PO DAILY Valacyclovir (Valtrex), 1 TAB PO DAILY Scheduled PRN Acetaminophen (Tylenol), 1,000 MG PO Q6 PRN for Headache or Pain Current Inpatient Medications Current Inpatient Medications Medications (Trade) Dose Ordered Sig/Rajesh Route Start Time Stop Time Status Last Admin Dose Admin Sodium Chloride 1,000 ml @ 200 mls/hr Q5H STAT IV 09/18/16 15:24 09/18/16 20:23 09/18/16 15:38 200 MLS/HR Review of Systems 810 point review of systems is unable to be obtained due to the patient being uncooperative with history despite repeated attempts Physical Exam Date Time Temp Pulse Resp B/P (MAP) Pulse Ox O2 Delivery O2 Flow Rate FiO2 09/18/16 17:19 75 22 97 09/18/16 17:16 85/44 09/18/16 17:10 96 Room Air 09/18/16 17:04 75 22 97 09/18/16 16:59 109/52 09/18/16 16:57 78 27 96 09/18/16 16:52 77 20 09/18/16 16:47 77 20 09/18/16 16:46 74/38 09/18/16 16:32 79 21 96 09/18/16 16:31 87/37 09/18/16 16:17 79 21 96 09/18/16 16:16 94/44 09/18/16 16:03 78 12 100/45 97 09/18/16 16:02 78 21 96 09/18/16 16:01 100/45 09/18/16 15:47 76 26 96 09/18/16 15:32 75 28 97 09/18/16 15:21 117/57 09/18/16 15:19 74 09/18/16 15:11 96 Room Air 09/18/16 15:11 36.8 74 10 133/73 97 Room Air 09/18/16 15:06 133/73 General Appearance: no apparent distress (resting in exam room arousable with light voice) Head: normocephalic, atraumatic Eyes: PERRLA, EOMI Respiratory: breath sounds normal, clear to auscultation Cardiovasular: regular rate/rhythm, normal S1S2, no M/G/R Abdomen: non tender, normal bowel sounds Upper Extremities: no edema, other (scars on the volar forearms secondary to prior self-injurious behavior) Neuro: alert, oriented x 3 Psychiatric: other (uncooperative, not answering directly with regards to suicidal ideation, does report suicide attempt) Laboratory Results Last 24 Hours Test 09/18/16 15:20 09/18/16 15:25 09/18/16 15:48 White Blood Count 9.07 K/uL Red Blood Count 4.45 M/uL Hemoglobin 14.0 g/dL Hematocrit 42.4 % Mean Corpuscular Volume 95.3 fL Mean Corpuscular Hemoglobin 31.5 pg Mean Corpuscular Hemoglobin Concent 33.0 g/dl Platelet Count 287 K/uL Mean Platelet Volume 11.1 fL Neutrophils (%) (Auto) 49.1 % Lymphocytes (%) (Auto) 40.2 % Monocytes (%) (Auto) 7.7 % Eosinophils (%) (Auto) 1.8 % Basophils (%) (Auto) 0.9 % Neutrophils # (Auto) 4.45 K/uL Lymphocytes # (Auto) 3.65 K/uL Monocytes # (Auto) 0.70 K/uL Eosinophils # (Auto) 0.16 K/uL Basophils # (Auto) 0.08 K/uL RDW Standard Deviation 46.4 fL RDW Coefficient of Variation 13.3 % Immature Granulocyte % (Auto) 0.3 % Immature Granulocyte # (Auto) 0.03 K/uL Sodium Level 138 mmol/L Potassium Level 3.7 mmol/L Chloride Level 105 mmol/L Carbon Dioxide Level 26 mmol/L Anion Gap 7.0 mmol/L Blood Urea Nitrogen 15 mg/dl Creatinine 1.10 mg/dl Est Creatinine Clear Calc Drug Dose 85.5 ml/min Estimated GFR () 74.8 Estimated GFR (Non- 64.5 BUN/Creatinine Ratio 13.3 Random Glucose 114 mg/dl Calcium Level 8.7 mg/dl Total Bilirubin 0.2 mg/dl Direct Bilirubin < 0.1 mg/dl Aspartate Amino Transf (AST/SGOT) 20 U/L Alanine Aminotransferase (ALT/SGPT) 29 U/L Alkaline Phosphatase 98 U/L Total Protein 6.9 gm/dl Albumin 3.8 gm/dl Salicylates Level 3.4 mg/dl Acetaminophen Level < 2 ug/ml Urine Color YELLOW Urine Appearance CLEAR Urine pH 6.5 Urine Specific [place] 1.020 Urine Protein TRACE Urine Glucose (UA) NEG Urine Ketones NEG Urine Occult Blood 2+ Urine Nitrite NEG Urine Bilirubin NEG Urine Urobilinogen NEG Urine Leukocyte Esterase LARGE Urine WBC (Auto) 10-30 /hpf Urine RBC (Auto) 10-30 /hpf Urine Hyaline Casts (Auto) 1-5 /lpf Urine Epithelial Cells (Auto) >30 /lpf Urine Bacteria (Auto) 1+ Urine Test NEG Urine Opiates Screen NEG Urine Methadone, Qualitative NEG Urine Barbiturates POS Urine Phencyclidine (PCP) Level NEG Ur Amphetamine/Methamphetamine NEG MDMA (Ecstasy) Screen NEG Urine Benzodiazepines Screen NEG Urine Cocaine Metabolite POS Urine Marijuana (THC) POS Ethyl Alcohol mg/dL < 3.0 mg/dl Diagnostic Results I have reviewed the chest x-ray as well as the radiology report dated 09/18/2016 Assessment & Plan (1) BORDERLINE PERSONALITY DISORDER (2) Cannabis abuse (3) Medication overdose (4) Prolonged Q-T interval on ECG Reason Critically Ill: Intentional drug overdose with prolonged QTC PLAN: Neuro: Intentional drug overdose * Increased risk for seizures * Seizure precautions * Continue Lamictal Resp: Supplemental oxygen as required * Patient reports history of intubation 3 after drug overdose CV: Prolonged QTC * In event of cardiovascular collapse as not responsive to normal vasoactive medications I would administer: * 20% lipid infusion 1.5 mL per kilo ideal body weight over 2-3 minutes (82.5 ML 's calculated ideal body weight 55 kg) * Followed up with a continuous infusion of 0.25 mL per kilo per minute 20% lipid infusion (13.75 ML's a minute) * For continued hemodynamic instability initial bolus may be repeated twice at five-minute intervals * If there is initial response to the Intralipid infusion and hemodynamic instability returns the continuous infusion can be increased to 0.5 mL per kilo per minute (27.5 MLS per minute) * Continue primidone secondary to prolonged QT Fluids/Renal: Normosol 150 ML's per hour CPK negative unlikely to have rhabdomyolysis ID: Awaits urine culture * Continue Truvada prophylaxis GI/Nutrition: Nothing by mouth Heme: Lovenox for DVT prophylaxis Endocrine: Accu-Cheks per protocol I have personally spent 45 minutes of critical care time in the direct management of this patient. This is a life/limb threatening event. This includes time spent evaluating patient, direct bedside care, chart review, placing orders, interpretation of diagnostic studies, discussion with consultants, patient, and family members, as well as other required patient management activities. This time is exclusive of all separately billable procedures, and teaching time and separate from and in addition to any other critical care service time.
--- NOTE | 2016-09-18 18:22 | History and Physical ---
History & Physical Date & Time of Service: Sep 18, 2016 at 18:03 Chief Complaint: Overdose Primary Care Physician: No Doctor, Assigned History of Present Illness Source: hospital records Pt is a 36 yo female with a h/o schizoaffective disorder, PTSD, depression, with multiple suicide attempts, borderline personality disorder, obesity, and polysubstance abuse, who presents to the ER after overdosing on Haldol that occurred today at 1430. History obtained by ER MD before pt became quite somnolent and I could not obtain a history. As per ER MD, the pt smoked crack last night and had been upset with herself for doing so as she has been trying to remain sober. She states that this morning she had a headache and her blood pressure was elevated. The patient states that she took two Vistaril and two Labetalol this morning. She states that she became upset with herself and then took 16 10 mg Haldol tablets at 1430 in an effort to . In the ER, she later became very lethargic and hypotensive down to the 60s-70s systolic. This responded a bit to bolused IVFs, but she remained very drowsy. She does arouse briefly to verbal and tactile stimuli and followed some simple commands but could not give me any history. Her QTc was quite prolonged. Poison control advised that peak onset of adverse effects could be around 6 hours post ingestion, but our pharmacist thought could be more like 12 hours. Director Telemetry was consulted and has agreed to take the pt into the ICU. Past Medical/Surgical History PMH: Polysubstance drug abuse Schizoaffective disorder Depression PTSD BORDERLINE PERSONALITY DISORDER IBS (irritable bowel syndrome) Migraine Seizure disorder PSH: Unknown, none listed in chart Family History Patient reports no known family medical history. Social History Smoking Status: Current Every Day Smoker Drug Use: cocaine, other (abuses Coricidin, crack) Marital Status: single Housing status: other (homeless, lives in shelters, hotels) Occupational Status: disabled Immunizations History of Influenza Vaccine: Unknown History of Tetanus Vaccine?: Yes Tetanus Immunization Date: Dec 01, 2007 History of Pneumococcal: Unknown History of Hepatitis B Vaccine: Unknown Allergies Coded Allergies: Ethanol (Verified Allergy, Mild, 09/10/16) Thioridazine (Verified Allergy, Mild, 09/10/16) Atropine (Verified Adverse Reaction, Severe, SEIZURES, 09/10/16) Home Medications Scheduled Benztropine Mesylate (Cogentin), 0.5 MG PO BID Coconut Oil (Bulk) (Coconut Oil), 1,000 MG PO DAILY Emtricitabine/Temofovir (Truvada 200/300MG), 1 TAB PO DAILY Haloperidol (Haloperidol), 5 MG PO QAM Haloperidol (Haldol), 1 TAB PO BID Hydroxyzine HCl (Hydroxyzine HCl), 25 MG PO Q4H Lamotrigine (Lamictal), 200 MG PO BID Melatonin (Melatonin Maximum Strengt), 2 TAB PO HS Prazosin Hcl (Prazosin), 1 MG PO BID Primidone (Mysoline), 100 MG PO BID Probiotic Product (Probiotic), 1 TAB PO DAILY Propranolol La (Inderal La), 60 MG PO DAILY Valacyclovir (Valtrex), 1 TAB PO DAILY Scheduled PRN Acetaminophen (Tylenol), 1,000 MG PO Q6 PRN for Headache or Pain Review of Systems unobtainable Physical Exam Vital Signs Date Time Temp Pulse Resp B/P (MAP) Pulse Ox O2 Delivery O2 Flow Rate FiO2 09/18/16 17:19 75 22 97 09/18/16 17:16 85/44 09/18/16 17:10 96 Room Air 09/18/16 17:04 75 22 97 09/18/16 16:59 109/52 09/18/16 16:57 78 27 96 09/18/16 16:52 77 20 09/18/16 16:47 77 20 09/18/16 16:46 74/38 09/18/16 16:32 79 21 96 09/18/16 16:31 87/37 09/18/16 16:17 79 21 96 09/18/16 16:16 94/44 09/18/16 16:03 78 12 100/45 97 09/18/16 16:02 78 21 96 09/18/16 16:01 100/45 09/18/16 15:47 76 26 96 09/18/16 15:32 75 28 97 09/18/16 15:21 117/57 09/18/16 15:19 74 09/18/16 15:11 96 Room Air 09/18/16 15:11 36.8 74 10 133/73 97 Room Air 09/18/16 15:06 133/73 General Appearance: WD/WN, no apparent distress, + obese (and somnolent, sleeping,lying on right side in bed) Head: normocephalic, atraumatic Eyes: normal inspection, PERRL, sclerae normal ENT: hearing grossly normal Neck: trachea midline Respiratory/Chest: lungs clear, normal breath sounds, no respiratory distress, no accessory muscle use Cardiovascular: regular rate, rhythm, no edema, no murmur, normal peripheral pulses Abdomen/GI: normal bowel sounds (and obese), non tender, soft Back: normal inspection Extremities/Musculoskelatal: normal inspection, normal capillary refill, no pedal edema Neurologic/Psych: + pertinent finding (very drowsy, followed some simple commands and then fell back asleep, did not open eyes voluntarily, did move all extremities) Skin: normal color, warm/dry, no rash Diagnostics Laboratory Results Results Past 24 Hours Test 09/18/16 15:20 09/18/16 15:25 09/18/16 15:48 09/18/16 17:43 Range/Units White Blood Count 9.07 4.8-10.8 K/uL Red Blood Count 4.45 4.2-5.4 M/uL Hemoglobin 14.0 12.0-16.0 g/dL Hematocrit 42.4 37-47 % Mean Corpuscular Volume 95.3 80-100 fL Mean Corpuscular Hemoglobin 31.5 25-34 pg Mean Corpuscular Hemoglobin Concent 33.0 32-36 g/dl Platelet Count 287 130-400 K/uL Mean Platelet Volume 11.1 7.4-10.4 fL Neutrophils (%) (Auto) 49.1 % Lymphocytes (%) (Auto) 40.2 % Monocytes (%) (Auto) 7.7 % Eosinophils (%) (Auto) 1.8 % Basophils (%) (Auto) 0.9 % Neutrophils # (Auto) 4.45 1.4-6.5 K/uL Lymphocytes # (Auto) 3.65 1.2-3.4 K/uL Monocytes # (Auto) 0.70 0.11-0.59 K/uL Eosinophils # (Auto) 0.16 0-0.5 K/uL Basophils # (Auto) 0.08 0-0.2 K/uL RDW Standard Deviation 46.4 36.4-46.3 fL RDW Coefficient of Variation 13.3 11.5-14.5 % Immature Granulocyte % (Auto) 0.3 % Immature Granulocyte # (Auto) 0.03 0.00-0.02 K/uL Sodium Level 138 136-145 mmol/L Potassium Level 3.7 3.5-5.1 mmol/L Chloride Level 105 98-107 mmol/L Carbon Dioxide Level 26 21-32 mmol/L Anion Gap 7.0 3-11 mmol/L Blood Urea Nitrogen 15 7-18 mg/dl Creatinine 1.10 0.60-1.20 mg/dl Est Creatinine Clear Calc Drug Dose 85.5 ml/min Estimated GFR () 74.8 Estimated GFR (Non- 64.5 BUN/Creatinine Ratio 13.3 10-20 Random Glucose 114 70-99 mg/dl Calcium Level 8.7 8.5-10.1 mg/dl Total Bilirubin 0.2 0.2-1 mg/dl Direct Bilirubin < 0.1 0-0.2 mg/dl Aspartate Amino Transf (AST/SGOT) 20 15-37 U/L Alanine Aminotransferase (ALT/SGPT) 29 12-78 U/L Alkaline Phosphatase 98 45-117 U/L Total Protein 6.9 6.4-8.2 gm/dl Albumin 3.8 3.4-5.0 gm/dl Salicylates Level 3.4 2.8-20 mg/dl Acetaminophen Level < 2 10-30 ug/ml Urine Color YELLOW Urine Appearance CLEAR CLEAR Urine pH 6.5 4.5-7.5 Urine Specific [place] 1.020 1.000-1.030 Urine Protein TRACE NEG Urine Glucose (UA) NEG NEG Urine Ketones NEG NEG Urine Occult Blood 2+ NEG Urine Nitrite NEG NEG Urine Bilirubin NEG NEG Urine Urobilinogen NEG NEG Urine Leukocyte Esterase LARGE NEG Urine WBC (Auto) 10-30 0-5 /hpf Urine RBC (Auto) 10-30 0-4 /hpf Urine Hyaline Casts (Auto) 1-5 0-5 /lpf Urine Epithelial Cells (Auto) >30 0-5 /lpf Urine Bacteria (Auto) 1+ NEG Urine Test NEG NEG Urine Opiates Screen NEG NEG Urine Methadone, Qualitative NEG NEG Urine Barbiturates POS NEG Urine Phencyclidine (PCP) Level NEG NEG Ur Amphetamine/Methamphetamine NEG NEG MDMA (Ecstasy) Screen NEG NEG Urine Benzodiazepines Screen NEG NEG Urine Cocaine Metabolite POS NEG Urine Marijuana (THC) POS NEG Ethyl Alcohol mg/dL < 3.0 0-3 mg/dl Microbiology Results 09/18/16 Urine Culture, Received Pending Impression Assessment and Plan Pt is a 36 yo female with a h/o schizoaffective disorder, PTSD, depression, with multiple suicide attempts, borderline personality disorder, obesity, and polysubstance abuse, who presents to the ER after overdosing on Haldol that occurred today at 1430. History obtained by ER MD before pt became quite somnolent and I could not obtain a history. As per ER MD, the pt smoked crack last night and had been upset with herself for doing so as she has been trying to remain sober. She states that this morning she had a headache and her blood pressure was elevated. The patient states that she took two Vistaril and two Labetalol this morning. She states that she became upset with herself and then took 16 10 mg Haldol tablets at 1430 in an effort to . In the ER, she later became very lethargic and hypotensive down to the 60s-70s systolic. This responded a bit to bolused IVFs, but she remained very drowsy. She does arouse briefly to verbal and tactile stimuli and followed some simple commands but could not give me any history. Her QTc was quite prolonged. Poison control advised that peak onset of adverse effects could be around 6 hours post ingestion, but our pharmacist thought could be more like 12 hours. Director Telemetry was consulted and has agreed to take the pt into the ICU. Haldol overdose, Suicidal attempt, Prolonged QTc,Hypotension due to drug overdose,LIME BURNER depression--> hypotensive intermittently, prolonged QT 538 on ECG. Peak of adverse SEs from haldol anywhere from 6-12 hours post-ingestion (1430). -Admit to ICU -follow ECGs -replace lytes prn -supportive care, maintain airway -continue IVFs -Appreciate Director Telemetry management -avoid other meds that can prolong QT at this time -Will need Psychiatry consultation once wakes up and iwll likely need inpatient Psych admission Schizoaffective disorder,Depression,PTSD,Borderline personality disorder, Suicide attempts- restart home meds when able to take po -avoid meds that can be abused or used for overdose -Psychiatric consultation to be obtained in the AM Proph-SCDs, heparin Dispo-Full Code Level of Care Critical Care Advanced Directives Existing Living Will: No Existing Power of Keeper Helper: No Resuscitation Status FULL RESUSCITATION VTE Prophylaxis VTE Risk Assessment Done? Y/N: Yes Risk Level: Low Given or contraindicated: Unfractionated heparin SQ Social Service Consult Homeless
--- NOTE | 2016-09-18 18:26 | DIAGNOSTIC IMAGING REPORT ---
CHEST ONE VIEW PORTABLE CLINICAL HISTORY: Overdose COMPARISON STUDY: 07/24/2007 FINDINGS: The bones soft tissues and hemidiaphragms are normal. The cardiomediastinal silhouette is normal. The lungs are clear. The pulmonary vasculature is normal. IMPRESSION: Negative chest. The above report was generated using voice recognition software. It may contain grammatical, syntax or spelling errors. Electronically signed by: Ben Purdy M.D. 09/18/2016 6:25 PM Dictated Date/Time: 09/18/2016 6:25 PM
[2016-09-18 18:30] LABS: MAGNESIUM 2.2 mg/dl (1.8-2.4); PHOSPHORUS 3.7 mg/dl (2.5-4.9)
[2016-09-18] MEDS: NORMOSOL R 1,000 ML IV SCH (19:51)
[2016-09-18] MEDS: PRIMIDONE 50 MG TAB PO SCH (20:33)
[2016-09-18] MEDS: ENOXAPARIN 30 MG/0.3 ML SYR SQ SCH (20:34)
[2016-09-18] MEDS ORDERED: TRVHP PO (23:08)
[2016-09-18] MEDS ORDERED: ATR25 PO (23:08)
[2016-09-18] MEDS ORDERED: VALA500T60 PO (23:08)
[2016-09-18] MEDS ORDERED: PRAZ1CAP10 PO (23:08)
[2016-09-19] VITALS (15 sets, daily range): BP systolic 102–133; BP diastolic 52–94; PULSE 51–76; TEMP 36.5–36.9; O2SAT 91–99
[2016-09-19] MEDS: NORMOSOL R 1,000 ML IV SCH (00:09)
[2016-09-19 05:43] LABS: HEMATOCRIT 36.2 % (37-47); MEAN CORPUSCULAR HEMOGLOBIN 31.2 pg (25-34); MEAN CORPUSCULAR HGB CONC 32.9 g/dl (32-36); MEAN PLATELET VOLUME 10.1 fL (7.4-10.4); PLATELET COUNT 189 K/uL (130-400); RED BLOOD COUNT 3.81 M/uL (4.2-5.4); WHITE BLOOD COUNT 7.04 K/uL (4.8-10.8)
[2016-09-19 06:08] LABS: BASO % 0.4 %; BASO ABS # 0.03 K/uL (0-0.2); COMPLETE YES; EOS % 1.8 %; IG% 0.3 %; LYMPH ABS # 3.52 K/uL (1.2-3.4); MONO % 4.5 %
[2016-09-19 06:33] LABS: BUN/CREATININE RATIO 14.3 (10-20); CALCIUM 7.6 mg/dl (8.5-10.1); CREATININE 0.79 mg/dl (0.60-1.20); MAGNESIUM 2.2 mg/dl (1.8-2.4); PHOSPHORUS 3.3 mg/dl (2.5-4.9); POTASSIUM 3.8 mmol/L (3.5-5.1)
--- NOTE | 2016-09-19 07:57 | Critical Care Progress Note ---
Critical Care Progress Note Date of Service Sep 19, 2016. ICU Day ICU Day Number: [address] Silva Subjective The patient was seen and examined at bedside. Pt resting comfortably in bed with seizure precautions in place. Pt doesn't have a segovia. Pt's only complaint is right ear pain (started prior to admission), pt responds "yes" when asked if she hit her right ear recently and if she has been sleeping on it poorly. Pt is still tired and wants to sleep. Patient is resting comfortably in bed. Pt denies any difficulty urinating. Pt is not hungry. Plan of care was described to the patient and all questions were answered. ROS: No chest pain, no SOB, no palpitations, no fevers, no chills, no nausea, no vomiting, no diarrhea, no dysuria, no rash. Objective Gen: No acute distress. Pt is resting in bed with seizure precautions. Sleeping and awakens to verbal stimuli. HEENT: Head - normocephalic and atraumatic. Pupils are equal, round, and reactive to light. Extraocular eye muscles are intact and sclera are anicteric. Ears - bilaterally patent canals with noninjected tympanic membranes and no evidence of hemotympanum. Nose - moist nasal mucosa without discharge. Mouth - moist buccal mucosa. Oropharynx is nonerythematous and there is no tonsillar exudate or edema noted. Neck: Supple; no JVD, nuchal rigidity, cervical lymphadenopathy, or auscultated bruits. Heart: Regular rate and rhythm. There is a normal S1 and S2 with no murmurs, clicks, or gallops appreciated. Lungs: Clear to auscultation bilaterally with no wheezes, rales, or rhonchi. Abdomen: Soft, completely nontender, nondistended, with good bowel sounds. There are no palpable pulsatile masses or hepatosplenomegaly. There is no guarding, rigidity, or rebound noted. Extremities: No evidence of cyanosis, clubbing, or edema. There are easily palpable peripheral pulses. Neuro: The patient is awake and alert albeit groggy, oriented to day, time, and place. Psych: Denies SI or HI. Current SOFA Score SOFA Score Response (Comments) Value Platelets (x10) > 150 0 Bilirubin (mg/dL) < 1.2 0 Kaleb Coma Score 13 - 14 1 Level of Hypotension No Hypotension 0 Creatinine (mg/dL) < 1.2 0 Total 1 Assessment & Plan 36F with a PMHx of seizure disorder, SI and previous SI attempts presents with intentional Haldol overdose. Pt admitted to the ICU for QTc prolongation. Neuro: * Seizures: * Continue Lamictal 200mg PO BID. * Seizure precautions * Anxiety: * Continue Ativan 0.5 mg PO Q4H PRN * tomorrow: Hydroxyzine 25mg PO daily. * tomorrow: Propranolol 60mg Daily * Suicidal Ideation: * Mental Health Consult in place, appreciate recommendations, pt denies actively having SI or HI. * Will restart pt's home dose of Haldol tonight, 5mg AM, 10mg around 1400, 10mg QHS. * Continue Benztropine 0.5mg BID * PTSD * Prazosin 1mg PO BID Resp: * Patient reports history of intubation 3 after drug overdose. No respiratory distress, good oxygen saturation on room air. CV: * Prolonged QTC: * Serial EKGs showed decreasing QTc (536-->489-->462) * Continue primidone 100mg BID secondary to prolonged QT. Fluids/Renal: * Will hold IVF at present, pt is request a diet, progress diet as tolerated. * CPK negative unlikely to have rhabdomyolysis ID: * Afebrile, WBC 7.0, not on Abx at present. * Urine culture pending. * HIV Proph: continue Truvada daily. * Herpes Proph: continue Valtrex 500mg daily. GI/Nutrition: * Progress diet as tolerated. Heme: * DVT Proph: Lovenox 30SQ BID. Endocrine: * Accu-Cheks per protocol MSK * Tylenol 1g Q5 PRN for Pain FULL CODE Resident Physician Supervision Note: Dr. Pang was resident physician during care of patient. I separately evaluated patient and did history and exam. I discussed the case with the resident and generally agree with the findings and plan. QTc shortened in duration, would restart routine haldol this evening. Continue home meds. Urine culture pending for possible UTI, however, no dysuria complaints. Medically cleared for mental health evaluation. Documented By: Sheldon Silva DO Consults & Procedures Consultants: Mental Health Consult Procedures: None Data Medications: Current Inpatient Medications Medications (Trade) Dose Ordered Sig/Rajesh Route Start Time Stop Time Status Last Admin Dose Admin Emtricitabine/ Tenofovir (Truvada 200-300mg Tab) 1 tab DAILY PO 09/19/16 09:00 10/19/16 08:59 Valacyclovir HCl (Valtrex Tab) 500 mg DAILY PO 09/19/16 09:00 09/29/16 08:59 Lamotrigine (Lamictal Tab) 200 mg BID PO 09/19/16 09:00 10/19/16 08:59 Primidone (Mysoline Tab) 100 mg BID PO 09/18/16 21:00 10/18/16 20:59 09/18/16 20:33 100 MG Parenteral Electrolyte Solution 1,000 ml @ 150 mls/hr Q6H40M IV 09/18/16 17:45 10/18/16 17:44 09/19/16 00:09 150 MLS/HR Nicotine (Nicoderm Cq 21MG Patch) 1 patch QAM TD 09/19/16 09:00 10/19/16 08:59 Miscellaneous (Remove Nicoderm Patch) 1 ea HS N/A 09/18/16 21:00 10/18/16 20:59 Enoxaparin Sodium (Lovenox Inj) 30 mg Q12H SQ 09/18/16 21:00 10/18/16 20:59 09/18/16 20:34 30 MG Lorazepam (Ativan Inj) 0.5 mg Q4H PRN IV 09/18/16 17:45 10/18/16 17:44 Albuterol/ Ipratropium (Duoneb) 3 ml Q6H PRN INH 09/18/16 17:45 10/18/16 17:44 Vital Signs: Date Time Temp Pulse Resp B/P (MAP) Pulse Ox O2 Delivery O2 Flow Rate FiO2 09/19/16 06:03 58 21 114/69 (81) 91 09/19/16 05:03 36.9 59 14 102/59 (75) 98 09/19/16 04:03 53 18 107/64 (72) 99 09/19/16 04:00 94 Nasal Cannula 2.0 09/19/16 03:03 57 17 103/52 (80) 98 09/19/16 02:03 51 18 104/59 (77) 98 09/19/16 01:03 58 18 102/65 (76) 92 09/19/16 01:03 58 18 102/65 (76) 92 17 01:00 60 20 94 09/19/16 00:03 36.9 53 18 109/68 (73) 94 17 00:03 53 18 109/68 (73) 94 09/19/16 00:00 54 18 93 19/17 23:59 94 Room Air 09/18/16 23:03 62 16 84/58 (69) 94 09/18/16 22:35 67 20 99/64 (76) 94 Room Air 09/18/16 20:00 92 Room Air 09/18/16 19:45 36.3 69 20 97/63 (77) 96 09/18/16 19:15 36.3 59 16 97/63 (74) 97 Room Air 09/18/16 18:59 67 20 89/51 97 17 18:39 70 19 96 19/17 18:24 71 20 98 19/17 18:18 104/58 17 18:09 72 21 97 19/17 18:01 85/47 19/17 17:54 74 19 96 19/17 17:46 92/52 19/17 17:39 72 96 19/17 17:36 90/45 19/17 17:33 68/47 19/17 17:24 74 20 97 19/17 17:19 75 22 97 19/17 17:16 85/44 19/17 17:10 96 Room Air 17 17:04 75 22 97 19/17 16:59 109/52 19/17 16:57 78 27 96 19/17 16:52 77 20 19/17 16:47 77 20 19/17 16:46 74/38 719/17 16:32 79 21 96 19/17 16:31 87/37 719/17 16:17 79 21 96 19/17 16:16 94/44 19/17 16:03 78 12 100/45 97 719/17 16:02 78 21 96 719/17 16:01 100/45 19/17 15:47 76 26 96 7/19/17 15:32 75 28 97 09/18/16 15:21 117/57 09/18/16 15:19 74 09/18/16 15:11 96 Room Air 09/18/16 15:11 36.8 74 10 133/73 97 Room Air 09/18/16 15:06 133/73 Laboratory Results: Last 24 Hours Test 09/18/16 15:20 09/18/16 15:25 09/18/16 15:48 09/18/16 22:38 White Blood Count 9.07 K/uL Red Blood Count 4.45 M/uL Hemoglobin 14.0 g/dL Hematocrit 42.4 % Mean Corpuscular Volume 95.3 fL Mean Corpuscular Hemoglobin 31.5 pg Mean Corpuscular Hemoglobin Concent 33.0 g/dl Platelet Count 287 K/uL Mean Platelet Volume 11.1 fL Neutrophils (%) (Auto) 49.1 % Lymphocytes (%) (Auto) 40.2 % Monocytes (%) (Auto) 7.7 % Eosinophils (%) (Auto) 1.8 % Basophils (%) (Auto) 0.9 % Neutrophils # (Auto) 4.45 K/uL Lymphocytes # (Auto) 3.65 K/uL Monocytes # (Auto) 0.70 K/uL Eosinophils # (Auto) 0.16 K/uL Basophils # (Auto) 0.08 K/uL RDW Standard Deviation 46.4 fL RDW Coefficient of Variation 13.3 % Immature Granulocyte % (Auto) 0.3 % Immature Granulocyte # (Auto) 0.03 K/uL Sodium Level 138 mmol/L Potassium Level 3.7 mmol/L Chloride Level 105 mmol/L Carbon Dioxide Level 26 mmol/L Anion Gap 7.0 mmol/L Blood Urea Nitrogen 15 mg/dl Creatinine 1.10 mg/dl Est Creatinine Clear Calc Drug Dose 85.5 ml/min Estimated GFR () 74.8 Estimated GFR (Non- 64.5 BUN/Creatinine Ratio 13.3 Random Glucose 114 mg/dl Calcium Level 8.7 mg/dl Phosphorus Level 3.7 mg/dl Magnesium Level 2.2 mg/dl Total Bilirubin 0.2 mg/dl Direct Bilirubin < 0.1 mg/dl Aspartate Amino Transf (AST/SGOT) 20 U/L Alanine Aminotransferase (ALT/SGPT) 29 U/L Alkaline Phosphatase 98 U/L Total Creatine Kinase 143 U/L Total Protein 6.9 gm/dl Albumin 3.8 gm/dl Salicylates Level 3.4 mg/dl Acetaminophen Level < 2 ug/ml Urine Color YELLOW Urine Appearance CLEAR Urine pH 6.5 Urine Specific Anita 1.020 Urine Protein TRACE Urine Glucose (UA) NEG Urine Ketones NEG Urine Occult Blood 2+ Urine Nitrite NEG Urine Bilirubin NEG Urine Urobilinogen NEG Urine Leukocyte Esterase LARGE Urine WBC (Auto) 10-30 /hpf Urine RBC (Auto) 10-30 /hpf Urine Hyaline Casts (Auto) 1-5 /lpf Urine Epithelial Cells (Auto) >30 /lpf Urine Bacteria (Auto) 1+ Urine Test NEG Urine Opiates Screen NEG Urine Methadone, Qualitative NEG Urine Barbiturates POS Urine Phencyclidine (PCP) Level NEG Ur Amphetamine/Methamphetamine NEG MDMA (Ecstasy) Screen NEG Urine Benzodiazepines Screen NEG Urine Cocaine Metabolite POS Urine Marijuana (THC) POS Ethyl Alcohol mg/dL < 3.0 mg/dl Bedside Glucose 131 mg/dl Test 09/19/16 05:24 White Blood Count 7.04 K/uL Red Blood Count 3.81 M/uL Hemoglobin 11.9 g/dL Hematocrit 36.2 % Mean Corpuscular Volume 95.0 fL Mean Corpuscular Hemoglobin 31.2 pg Mean Corpuscular Hemoglobin Concent 32.9 g/dl Platelet Count 189 K/uL Mean Platelet Volume 10.1 fL Neutrophils (%) (Auto) 43.0 % Lymphocytes (%) (Auto) 50.0 % Monocytes (%) (Auto) 4.5 % Eosinophils (%) (Auto) 1.8 % Basophils (%) (Auto) 0.4 % Neutrophils # (Auto) 3.02 K/uL Lymphocytes # (Auto) 3.52 K/uL Monocytes # (Auto) 0.32 K/uL Eosinophils # (Auto) 0.13 K/uL Basophils # (Auto) 0.03 K/uL RDW Standard Deviation 47.1 fL RDW Coefficient of Variation 13.5 % Immature Granulocyte % (Auto) 0.3 % Immature Granulocyte # (Auto) 0.02 K/uL Sodium Level 140 mmol/L Potassium Level 3.8 mmol/L Chloride Level 109 mmol/L Carbon Dioxide Level 28 mmol/L Anion Gap 3.0 mmol/L Blood Urea Nitrogen 11 mg/dl Creatinine 0.79 mg/dl Est Creatinine Clear Calc Drug Dose 121.3 ml/min Estimated GFR () 111.6 Estimated GFR (Non- 96.3 BUN/Creatinine Ratio 14.3 Random Glucose 90 mg/dl Calcium Level 7.6 mg/dl Phosphorus Level 3.3 mg/dl Magnesium Level 2.2 mg/dl Resident Involvement: Resident Care Provided Care Provided: Adult [facility] Medicine
--- NOTE | 2016-09-19 08:24 | Family Medicine Progress Note ---
Progress Note Date of Service Sep 19, 2016. Resident Tracking Resident Involvement: Resident Care Provided Care Provided: Adult Hospital Medicine
[2016-09-19] MEDS ORDERED: NICOTINE 21 MG/24 HR TDSY TD SCH (09:00)
[2016-09-19] MEDS ORDERED: EMTRICITABINE/TENOFOVIR TAB PO SCH (09:00)
[2016-09-19] MEDS ORDERED: hydrOXYzine HCL 25 MG TAB PO PRN (09:15)
[2016-09-19] MEDS ORDERED: ACETAMINOPHEN 500 MG TAB PO PRN (09:15)
[2016-09-19] MEDS: PRIMIDONE 50 MG TAB PO SCH (11:14)
[2016-09-19] MEDS: ENOXAPARIN 30 MG/0.3 ML SYR SQ SCH (11:25)
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
--- NOTE | 2016-09-19 15:57 | Discharge Instructions ---
Discharge Instructions Date of Service Sep 19, 2016. Admission Reason for Admission: Overdose Discharge Discharge Diagnosis / Problem: Haldol Overdose Discharge Goals Goal(s): Decrease discomfort, Improve function, Therapeutic intervention Activity Recommendations Activity Limitations: per Instructions/Follow-up section Lifting Limitations: gradually increase as tolerated Exercise/Sports Limitations: gradually increase as tolerated . Instructions / Follow-Up Instructions / Follow-Up - You are being discharged to [facility] for Inpatient Psychiatric Care - Please resume your normal home medications and prescribed - Please abstain from cocaine, heroin, marijuana, and other illicit drugs due to their negative effect on your health and further risk of overdose and medical complications Current Hospital Diet Patient's current hospital diet: Regular Diet Discharge Diet Recommended Diet: Regular Diet Pending Studies Studies pending at discharge: no Medical Emergencies . Who to Call and When: Medical Emergencies: If at any time you feel your situation is an emergency, please call 911 immediately. . Non-Emergent Contact Non-Emergency issues call your: Primary Care Provider . . "Provider Documentation" section prepared by Butch Jimenez. . VTE Core Measure Inpt VTE Proph given/why not?: Unfractionated heparin SQ
[2016-09-19] MEDS ORDERED: MELATONIN - ORDER AWAITING ACTION SCH (16:00)
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
[2016-09-19] MEDS ORDERED: PRAZOSIN HCL 1 MG CAP PO SCH (21:00)
[2016-09-19] MEDS ORDERED: HALOPERIDOL 5 MG TAB PO SCH (21:00)
[2016-09-19] MEDS ORDERED: BENZTROPINE MESYLATE 0.5 MG TAB PO SCH (21:00)
[2016-09-20] MEDS ORDERED: PROPRANOLOL HCL 60 MG LA CAP PO SCH (09:00)
[2016-09-20] MEDS ORDERED: HALOPERIDOL 5 MG TAB PO SCH (09:00)
[2016-09-22 16:06] LABS: COCAINE, URINE 41000 NG/ML (CUTOFF=100)
== END 2016-09-19 17:33 | DRG 918 ==
LOC: EDBD 15:02 → C.EDB 15:04 → C.MSICU 17:58 → ENRESERV 18:26 → C.MS2W 09-19 13:17
PROVIDERS: ADMIT Family Medicine; ATTEND Family Medicine
DX: T43.4X2A Poisoning by butyrophenone and thiothixene neuroleptics, intentional self-harm, initial encounter (principal); Z68.41 Body mass index [BMI] 40.0-44.9, adult; K51.90 Ulcerative colitis, unspecified, without complications; F25.9 Schizoaffective disorder, unspecified; F43.10 Post-traumatic stress disorder, unspecified; F41.9 Anxiety disorder, unspecified; F60.3 Borderline personality disorder; F32.9 Major depressive disorder, single episode, unspecified; I95.2 Hypotension due to drugs; E66.9 Obesity, unspecified; F14.10 Cocaine abuse, uncomplicated; F55.8 Abuse of other non-psychoactive substances; F17.210 Nicotine dependence, cigarettes, uncomplicated; K58.9 Irritable bowel syndrome, unspecified; G40.909 Epilepsy, unspecified, not intractable, without status epilepticus; G43.909 Migraine, unspecified, not intractable, without status migrainosus; Z79.899 Other long term (current) drug therapy; Z88.8 Allergy status to other drugs, medicaments and biological substances; Z59.0 Homelessness; E28.2 Polycystic ovarian syndrome; Z62.810 Personal history of physical and sexual abuse in childhood

== ENCOUNTER 2016-10-05 06:59 | Emergency (ER) | payer OTHER ==
[~2016-10-05 06:59] MED LIST changes: +ATR25 PO; +COCO1OIL2 PO; +PRAZ1CAP10 PO; +PROB1TAB16 PO; +TRVHP PO; +TYLOTC500 PO; +VALA500T60 PO
[2016-10-05 07:00] VITALS: TEMP 37.2
[2016-10-05 07:15] VITALS: O2SAT 97
[2016-10-05] MEDS ORDERED: SODIUM CHLORIDE 0.9% 1000ML 1,000 ML IV STA ×2 (07:40)
[2016-10-05] MEDS ORDERED: ATOM25CA PO (07:48)
[2016-10-05 08:11] LABS: BASO % 0.7 %; BASO ABS # 0.08 K/uL (0-0.2); COMPLETE YES; EOS % 2.2 %; HEMATOCRIT 42.1 % (37-47); IG% 0.5 %; LYMPH % 32.2 %; LYMPH ABS # 3.48 K/uL (1.2-3.4); MEAN CELL VOLUME 94.2 fL (80-100); MEAN CORPUSCULAR HEMOGLOBIN 31.3 pg (25-34); MEAN CORPUSCULAR HGB CONC 33.3 g/dl (32-36); MEAN PLATELET VOLUME 10.5 fL (7.4-10.4); MONO % 8.3 %; NEUT % 56.1 %; PLATELET COUNT 244 K/uL (130-400); RED BLOOD COUNT 4.47 M/uL (4.2-5.4); WHITE BLOOD COUNT 10.82 K/uL (4.8-10.8)
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
[2016-10-05 08:31] LABS: ALT/SGPT 29 U/L (12-78); AST/SGOT 14 U/L (15-37); BLOOD UREA NITROGEN 13 mg/dl (7-18); BUN/CREATININE RATIO 12.7 (10-20); CALCIUM 9.2 mg/dl (8.5-10.1); CARBON DIOXIDE 31 mmol/L (21-32); CHLORIDE 99 mmol/L (98-107); GLUCOSE 95 mg/dl (70-99); POTASSIUM 3.8 mmol/L (3.5-5.1); SODIUM 135 mmol/L (136-145)
[2016-10-05 08:37] LABS: PREG INTERNAL NEGATIVE QC NEG CLEAR BACKGROUND; PREG INTERNAL POSITIVE QC POS CONTROL LINE
[2016-10-05 08:42] LABS: ALKALINE PHOSPHATASE 82 U/L (45-117)
[2016-10-05 08:54] LABS: ACETAMINOPHEN < 2 ug/ml (10-30)
[2016-10-05 08:57] LABS: URINE APPEARANCE CLEAR (CLEAR); URINE BILIRUBIN NEG (NEG); URINE COLOR YELLOW; URINE NITRITE NEG (NEG); URINE SPECIFIC GRAVITY 1.014 (1.000-1.030); UROBILINOGEN NEG (NEG); ZZURINE CULT IF INDIC CATH YES
[2016-10-05 09:02] LABS: MANUAL MICROSCOPIC REQUIRED? NO; REVIEW REQ? NO
[2016-10-05 09:12] LABS: BENZODIAZEPINE, URINE NEG (NEG); COCAINE,URINE NEG (NEG); PHENCYCLIDINE, URINE POS (NEG)
[2016-10-05] MEDS ORDERED: EMTRICITABINE/TENOFOVIR TAB PO SCH (22:30)
--- NOTE | 2016-10-05 22:54 | EMERGENCY ROOM VISIT NOTE ---
ED Visit Note Patient signed out to me pending bed placement. Patient is 302. Bed search suspended until am. PM meds and am meds ordered. No issues.
[2016-10-06 02:25] VITALS: BP 108/66; PULSE 74; O2SAT 95
[2016-10-06] MEDS ORDERED: ATOMOXETINE 25 MG CAP PO SCH (09:00)
[2016-10-06] MEDS ORDERED: PROPRANOLOL HCL 20 MG TAB PO SCH (09:00)
[2016-10-07 01:08] LABS: PHENCYCLIDINE GC/MS NEGATIVE NG/ML (CUTOFF=25)
[2016-10-11 00:29] LABS: SYNTHETIC CANNABINOIDS QL URIN NEGATIVE (Negative)
== END 2016-10-06 02:46 ==
LOC: EDBD 06:59 → C.EDA 07:00
DX: F39 Unspecified mood [affective] disorder (principal); T50.992A Poisoning by other drugs, medicaments and biological substances, intentional self-harm, initial encounter; I10 Essential (primary) hypertension; E28.2 Polycystic ovarian syndrome; F17.200 Nicotine dependence, unspecified, uncomplicated; Z91.5 Personal history of self-harm; Z86.69 Personal history of other diseases of the nervous system and sense organs; Z79.899 Other long term (current) drug therapy